=== PATIENT | female | born 1960 | race Caucasian/White ===

== ENCOUNTER 2016-08-15 16:04 | Outpatient (CLI) | payer OTHER ==
[2016-05-25 19:16] VITALS: BMI 26.6
[2016-08-15 17:43] LABS: FLU INTERNAL QC INTERNAL QC VALID; RAPID FLU A NEGATIVE (NEGATIVE); RAPID FLU B NEGATIVE (NEGATIVE)
== END 2016-08-15 16:05 | disposition home or self-care (01) ==
LOC: LAB 16:04
PROVIDERS: ATTEND Nurse Practitioner Family
DX: R50.9 Fever, unspecified (principal); R05 Cough
CPT/HCPCS: 87651; 87804; 87880

== ENCOUNTER 2017-01-07 06:31 | Outpatient (CLI) ==
[2016-05-25 19:16] VITALS: BMI 26.6
[2017-01-07 06:49] LABS: BASOPHILS # (AUTO) 0.1 K/uL (0-0.2); BASOPHILS % (AUTO) 0.8 % (0.0-3.0); EOSINOPHILS # (AUTO) 0.2 K/ul (0.0-0.7); EOSINOPHILS % (AUTO) 3.4 % (0.0-7.0); HEMATOCRIT 39.6 % (37.0-47.0); HEMOGLOBIN 13.4 g/dl (12.0-16.0); IMMATURE GRANULOCYTE % (AUTO) 0.2 % (0.0-5.0); LYMPHOCYTES # (AUTO) 2.6 K/uL (0.60-3.4); LYMPHOCYTES % (AUTO) 41.8 (10.0-50.0); MEAN CORPUSCULAR HEMOGLOBIN 31.5 pg (27.0-31.0); MEAN CORPUSCULAR HGB CONC 33.8 (31.8-35.4); MEAN CORPUSCULAR VOLUME 93.2 fl (81.0-99.0); MONOCYTES # (AUTO) 0.6 K/uL (0.4-2.0); MONOCYTES % (AUTO) 9.1 (0-10); NEUTROPHILS # (AUTO) 2.8 K/ul (2.0-6.9); NEUTROPHILS % (AUTO) 44.7; PLATELET COUNT 266 10^3/uL (140-440); RED BLOOD COUNT 4.25 10^6/ul (4.20-5.40); WHITE BLOOD COUNT 6.25 K/ul (4.6-10.2)
[2017-01-07 07:25] LABS: ALBUMIN 3.7 g/dL (3.4-5.0); ALBUMIN/GLOBULIN RATIO 1.23; ANION GAP 12.3; BILIRUBIN,TOTAL 0.26 mg/dL (0.00-1.20); BUN/CREATININE RATIO 23.52; CALCIUM 9.4 mg/dL (8.2-10.2); CHOL/HDL RATIO 4.6 (4.5-5.5); CREATININE 0.85 mg/dL (0.60-1.30); POTASSIUM 4.3 mmol/L (3.5-5.10); TOTAL PROTEIN 6.7 g/dL (6.4-8.2)
== END 2017-01-07 06:32 | disposition home or self-care (01) ==
LOC: LAB 06:31
PROVIDERS: ATTEND Internal Medicine
DX: E78.5 Hyperlipidemia, unspecified (principal); M79.7 Fibromyalgia; K58.9 Irritable bowel syndrome, unspecified
CPT/HCPCS: 36415; 80053; 80061; 83036; 84443; 85025

== ENCOUNTER 2017-01-17 12:59 | Inpatient (IN) | payer OTHER ==
[2017-01-17] MEDS ORDERED: MORPHINE 2 MG/ML SYRINGE IVP STA (13:03)
[2017-01-17] MEDS ORDERED: ZOFRAN 4 MG/2 ML IVP STA (13:03)
--- NOTE | 2017-01-17 13:04 | ED.PDOC ---
General ED Provider: Dr. JEREMIAH DAVIS JR Chief Complaint: Chest Pain Stated Complaint: right shoulder and arm pain 2 hours later in chest and now into neck Time Seen by Physician: 14:14 Mode of Arrival: Wheelchair Information Source: Patient Exam Limitations: No limitations Primary Care Provider: ILIR HIRSCH Nursing and Triage Documentation Reviewed and Agree: No Review of Systems - Review Of Systems Constitutional: Reports: Malaise Eyes: Reports: No symptoms Ears, Nose, Mouth, Throat: Reports: No symptoms Respiratory: Reports: No symptoms Cardiac: Reports: Chest pain GI: Reports: No symptoms : Reports: No symptoms Musculoskeletal: Reports: Joint pain, Neck pain Skin: Reports: No symptoms Neurological: Reports: No symptoms Endocrine: Reports: No symptoms Hematologic/Lymphatic: Reports: No symptoms All Other Systems: Other Past Medical History - Past Medical History Previously Healthy: Yes Endocrine: Reports: Dyslipidemia Cardiovascular: Reports: None Respiratory: Reports: None Hematological: Reports: None Gastrointestinal: Reports: GERD Genitourinary: Reports: None Neuro/Psych: Reports: Migraine Musculoskeletal: Reports: None Cancer: Reports: None Last Menstrual Period: none - Surgical History General Surgical History: Reports: Cholecystectomy, Other (cts) - Family History Family History: Reports: Unknown - Social History Smoking Status: Current every day smoker Hx Substance Use: No Alcohol Screening: None Physical Exam - Physical Exam Appearance: Well-appearing Pain Distress: Moderate Eyes: DWIGHT, EOMI, Conjunctiva clear ENT: Ears normal, Nose normal, Oropharynx normal Neck: Supple Respiratory: Airway patent, Breath sounds clear, Breath sounds equal, Respirations nonlabored Cardiovascular: RRR, Pulses normal, No rub, No murmur GI/: Soft, Nontender, No masses, Bowel sounds normal, No Organomegaly Musculoskeletal: Normal strength, ROM intact, No edema, No calf tenderness Skin: Warm, Dry, Normal color Neurological: Sensation intact, Motor intact, Reflexes intact, Cranial nerves intact, Alert, Oriented Psychiatric: Affect appropriate, Mood appropriate Critical Care Note - Critical Care Note Total Time (mins): 20 Course - Course Hematology/Chemistry: 01/18/17 05:00 01/18/17 05:00 Orders, Labs, Meds: Lab Review 01/17/17 01/17/17 01/17/17 13:05 13:14 13:35 WBC 10.24 H RBC 4.47 Hgb 14.1 Hct 41.1 MCV 91.9 MCH 31.5 H MCHC 34.3 RDW Coeff of Patric 13.1 Plt Count 251 Immature Gran % (Auto) 0.2 Neut % (Auto) 58.2 Lymph % (Auto) 33.1 Lyman % (Auto) 4.6 Eos % (Auto) 3.2 Baso % (Auto) 0.7 Immature Gran # (Auto) 0.0 Neut # 6.0 Lymph # 3.4 Lyman # 0.5 Eos # 0.3 Baso # 0.1 D-Dimer (Manual) 389.88 Puncture Site Rradial O2 Saturation 94.0 L ABG pH 7.415 ABG pCO2 40.3 ABG pO2 69.0 L ABG HCO3 25.8 ABG Total CO2 27 ABG Base Excess 1 Toño Test + FiO2 % 21.0 Sodium 142 Potassium 4.0 Chloride 107 Carbon Dioxide 20 L Anion Gap 19.0 BUN 10 Creatinine 0.83 Estimated GFR (MDRD) 72.00 BUN/Creatinine Ratio 12.04 Glucose 97 Calcium 9.5 Total Bilirubin 0.47 AST 24 ALT 19 Alkaline Phosphatase 108 H Total Creatine Kinase 147 CK-MB (CK-2) 1.5 CK-MB (CK-2) % 1.41709 Troponin I < 0.0100 B-Natriuretic Peptide 17 Total Protein 7.5 Albumin 4.2 Globulin 3.3 Albumin/Globulin Ratio 1.27 Urine Color Urine Clarity Urine pH Ur Specific [place] Urine Protein Urine Glucose (UA) Urine Ketones Urine Blood Urine Nitrite Urine Bilirubin Urine Urobilinogen Ur Leukocyte Esterase Urine Microscopic RBC Ur Squamous Epith Cells 01/17/17 15:10 WBC RBC Hgb Hct MCV MCH MCHC RDW Coeff of Patric Plt Count Immature Gran % (Auto) Neut % (Auto) Lymph % (Auto) Lyman % (Auto) Eos % (Auto) Baso % (Auto) Immature Gran # (Auto) Neut # Lymph # Lyman # Eos # Baso # D-Dimer (Manual) Puncture Site O2 Saturation ABG pH ABG pCO2 ABG pO2 ABG HCO3 ABG Total CO2 ABG Base Excess Toño Test FiO2 % Sodium Potassium Chloride Carbon Dioxide Anion Gap BUN Creatinine Estimated GFR (MDRD) BUN/Creatinine Ratio Glucose Calcium Total Bilirubin AST ALT Alkaline Phosphatase Total Creatine Kinase CK-MB (CK-2) CK-MB (CK-2) % Troponin I B-Natriuretic Peptide Total Protein Albumin Globulin Albumin/Globulin Ratio Urine Color Yellow Urine Clarity Clear Urine pH 7.0 Ur Specific [place] 1.015 Urine Protein Negative Urine Glucose (UA) Negative Urine Ketones Negative Urine Blood Trace-intact Urine Nitrite Negative Urine Bilirubin Negative Urine Urobilinogen 0.2 Ur Leukocyte Esterase Negative Urine Microscopic RBC 0-2 Ur Squamous Epith Cells Not present Orders Category Date Time Status ADMIT PATIENT INPATIENT .TO [facility] (MONITORED BED) ADMISSION 01/17/17 14: 58 Active ABG DRAW REQUEST Stat CARDIO 01/17/17 13:03 Completed EKG-(ED ONLY) Stat CARDIO 01/17/17 13:03 Completed EKG-(IP & OP ONLY) DAILY CARDIO 01/18/17 06:00 Completed EKG-(IP & OP ONLY) DAILY CARDIO 01/19/17 06:00 Ordered EKG-(IP & OP ONLY) DAILY CARDIO 01/20/17 06:00 Ordered ACTIVITY .Early Mobilization for VTE Prevention CARE 01/17/17 14:58 Completed INTAKE & OUTPUT Q8HR CARE 01/17/17 14:50 Completed TELEMETRY MONITORING TELE CARE 01/17/17 15:01 Active ED PRODUCT SCIENTIST APPLIED .ONCE EMERGENCY 01/17/17 13:03 Active ED IV/MEDIPORT/POWERPORT .ONCE EMERGENCY 01/17/17 13:03 Active ABG Stat LAB 01/17/17 13:35 Completed B-TYPE NATRIURETIC PEPTIDE Stat LAB 01/17/17 13:05 Completed CBC W/ AUTO DIFF DAILY@0600 LAB 01/18/17 05:00 Completed CBC W/ AUTO DIFF DAILY@0600 LAB 01/19/17 06:00 Ordered CBC W/ AUTO DIFF DAILY@0600 LAB 01/20/17 06:00 Ordered CBC W/ AUTO DIFF DAILY@0600 LAB 01/21/17 06:00 Ordered CBC W/ AUTO DIFF DAILY@0600 LAB 01/22/17 06:00 Ordered CBC W/ AUTO DIFF DAILY@0600 LAB 01/23/17 06:00 Ordered CBC W/ AUTO DIFF DAILY@0600 LAB 01/24/17 06:00 Ordered CBC W/ AUTO DIFF DAILY@0600 LAB 01/25/17 06:00 Ordered CBC W/ AUTO DIFF DAILY@0600 LAB 01/26/17 06:00 Ordered CBC W/ AUTO DIFF DAILY@0600 LAB 01/27/17 06:00 Ordered CBC W/ AUTO DIFF DAILY@0600 LAB 01/28/17 06:00 Ordered CBC W/ AUTO DIFF DAILY@0600 LAB 01/29/17 06:00 Ordered CBC W/ AUTO DIFF DAILY@0600 LAB 01/30/17 06:00 Ordered CBC W/ AUTO DIFF DAILY@0600 LAB 01/31/17 06:00 Ordered CBC W/ AUTO DIFF DAILY@0600 LAB 02/01/17 06:00 Ordered CBC W/ AUTO DIFF DAILY@0600 LAB 02/02/17 06:00 Ordered CBC W/ AUTO DIFF DAILY@0600 LAB 02/03/17 06:00 Ordered CBC W/ AUTO DIFF DAILY@0600 LAB 02/04/17 06:00 Ordered CBC W/ AUTO DIFF DAILY@0600 LAB 02/05/17 06:00 Ordered CBC W/ AUTO DIFF DAILY@0600 LAB 02/06/17 06:00 Ordered CBC W/ AUTO DIFF Stat LAB 01/17/17 13:05 Completed COMPREHENSIVE METABOLIC PANEL DAILY@0600 LAB 01/18/17 05:00 Completed COMPREHENSIVE METABOLIC PANEL DAILY@0600 LAB 01/19/17 06:00 Ordered COMPREHENSIVE METABOLIC PANEL DAILY@0600 LAB 01/20/17 06:00 Ordered COMPREHENSIVE METABOLIC PANEL DAILY@0600 LAB 01/21/17 06:00 Ordered COMPREHENSIVE METABOLIC PANEL DAILY@0600 LAB 01/22/17 06:00 Ordered COMPREHENSIVE METABOLIC PANEL DAILY@0600 LAB 01/23/17 06:00 Ordered COMPREHENSIVE METABOLIC PANEL DAILY@0600 LAB 01/24/17 06:00 Ordered COMPREHENSIVE METABOLIC PANEL DAILY@0600 LAB 01/25/17 06:00 Ordered COMPREHENSIVE METABOLIC PANEL DAILY@0600 LAB 01/26/17 06:00 Ordered COMPREHENSIVE METABOLIC PANEL DAILY@0600 LAB 01/27/17 06:00 Ordered COMPREHENSIVE METABOLIC PANEL DAILY@0600 LAB 01/28/17 06:00 Ordered COMPREHENSIVE METABOLIC PANEL DAILY@0600 LAB 01/29/17 06:00 Ordered COMPREHENSIVE METABOLIC PANEL DAILY@0600 LAB 01/30/17 06:00 Ordered COMPREHENSIVE METABOLIC PANEL DAILY@0600 LAB 01/31/17 06:00 Ordered COMPREHENSIVE METABOLIC PANEL DAILY@0600 LAB 02/01/17 06:00 Ordered COMPREHENSIVE METABOLIC PANEL DAILY@0600 LAB 02/02/17 06:00 Ordered COMPREHENSIVE METABOLIC PANEL DAILY@0600 LAB 02/03/17 06:00 Ordered COMPREHENSIVE METABOLIC PANEL DAILY@0600 LAB 02/04/17 06:00 Ordered COMPREHENSIVE METABOLIC PANEL DAILY@0600 LAB 02/05/17 06:00 Ordered COMPREHENSIVE METABOLIC PANEL DAILY@0600 LAB 02/06/17 06:00 Ordered COMPREHENSIVE METABOLIC PANEL Stat LAB 01/17/17 13:05 Completed CREATINE KINASE Q8H LAB 01/17/17 21:00 Completed CREATINE KINASE Q8H LAB 01/18/17 05:00 Completed CREATINE KINASE Stat LAB 01/17/17 13:05 Completed D-DIMER Stat LAB 01/17/17 13:14 Completed TROPONIN I Q8H LAB 01/17/17 21:00 Completed TROPONIN I Q8H LAB 01/18/17 05:00 Completed TROPONIN I Stat LAB 01/17/17 13:05 Completed URINALYSIS C & S IF INDICATED Stat LAB 01/17/17 15:10 Completed 0.9 % Sodium Chloride [Saline Flush] MEDS 01/17/17 13:03 Discontinued 1 syr IVF PRN PRN Acetaminophen [Tylenol] MEDS 01/17/17 14:58 Active 650 mg PO Q4H PRN Atorvastatin Calcium [Lipitor] MEDS 01/17/17 21:00 Active 10 mg PO BEDTIME Diazepam [Valium] MEDS 01/17/17 14:54 Active 5 mg PO Q8HR PRN Gabapentin [Gabapentin] MEDS 01/17/17 15:00 Discontinued 600 mg PO TID Ketorolac Tromethamine [Toradol] MEDS 01/17/17 15:01 Active 15 mg IVP Q6H PRN Ketorolac Tromethamine [Toradol] MEDS 01/17/17 13:44 Discontinued 30 mg IVP ONCE STA Lorazepam [Ativan] MEDS 01/17/17 21:00 Active 0.5 mg PO BEDTIME Morphine Sulfate [Morphine 2 mg/ml Syringe] MEDS 01/17/17 13:03 Discontinued 2 mg IVP ONCE STA Ondansetron HCl/Pf [Zofran 4 mg/2 ml] MEDS 01/17/17 13:03 Discontinued 4 mg IVP ONCE STA Sodium Chloride 0.9% [Sodium Chloride] 1,000 ml MEDS 01/17/17 15:00 Active IV 75 mls/hr Tramadol HCl [Ultram] MEDS 01/17/17 14:52 Active 50 mg PO BID PRN RESUSCITATION STATUS Routine OTHERS 01/17/17 14:50 Ordered CHEST, 1V AP ONLY Stat RADS 01/17/17 13:03 Completed Medications Generic Name Dose Route Start Last Admin Trade Name Lore PRN Reason Stop Dose Admin Acetaminophen 650 mg 01/17/17 14:58 Tylenol PO Q4H PRN Mild Pain Atorvastatin Calcium 10 mg 01/17/17 21:00 01/17/17 20:19 Lipitor PO 10 mg BEDTIME QAMAR Administration Diazepam 5 mg 01/17/17 14:54 Valium PO Q8HR PRN Anxiety Gabapentin 600 mg 01/18/17 09:00 01/18/17 08:56 Neurontin PO 600 mg TID QAMAR Administration Sodium Chloride 1,000 mls @ 75 mls/hr 01/17/17 15:00 01/18/17 06:29 Sodium Chloride IV 75 mls/hr .[id number] QAMAR Administration Ketorolac Tromethamine 15 mg 01/17/17 15:01 Toradol IVP Q6H PRN pain not contrlolled Lorazepam 0.5 mg 01/17/17 21:00 01/17/17 20:18 Ativan PO 0.5 mg BEDTIME QAMAR Administration Omeprazole 40 mg 01/18/17 09:00 01/18/17 08:56 Prilosec PO 40 mg QDAC QAMAR Administration Tramadol HCl 50 mg 01/17/17 14:52 Ultram PO BID PRN pain Discontinued Medications Generic Name Dose Route Start Last Admin Trade Name Lore PRN Reason Stop Dose Admin Dexamethasone Sodium Phosphate 2 mg 01/18/17 07:59 01/18/17 08:47 Decadron 4 Mg/Ml Sdv IM 01/18/17 08:00 2 mg ONCE STA Administration Ketorolac Tromethamine 30 mg 01/17/17 13:44 01/17/17 14:04 Toradol IVP 01/17/17 13:45 30 mg ONCE STA Administration Ketorolac Tromethamine 30 mg 01/18/17 07:59 01/18/17 08:51 Toradol IVP 01/18/17 08:00 30 mg ONCE STA Administration Morphine Sulfate 2 mg 01/17/17 13:03 01/17/17 13:21 Morphine 2 Mg/Ml Syringe IVP 01/17/17 13:04 2 mg ONCE STA Administration Non-Formulary Medication 600 mg 01/17/17 15:00 01/17/17 21:09 Gabapentin [Gabapentin] PO Not Given TID QAMAR Ondansetron HCl 4 mg 01/17/17 13:03 01/17/17 13:18 Zofran 4 Mg/2 Ml IVP 01/17/17 13:04 4 mg ONCE STA Administration Ondansetron HCl 4 mg 01/18/17 08:00 01/18/17 08:51 Zofran 4 Mg/2 Ml IVP 01/18/17 08:01 4 mg ONCE STA Administration Sodium Chloride 1 syr 01/17/17 13:03 01/17/17 14:05 Saline Flush IVF 1 syr PRN PRN Administration To flush IV Vital Signs: Temp Pulse Resp BP Pulse Ox 01/17/17 12:59 98.0 F 73 18 125/84 99 KEVIN Risk Score KEVIN Risk Score: Risk Score Odds of by 30D 0 0.1 (0.1-0.2) 1 0.3 (0.2-0.3) 2 0.4 (0.3-0.5) 3 0.7 (0.6-0.9) 4 1.2 (1.0-1.5) 5 2.2 (1.9-2.6) 6 3.0 (2.5-3.6) 7 4.8 (3.8-6.1) Departure - Departure Time of Disposition: 14:50 Disposition: ADMITTED INPATIENT Discharge Problem: Chest pain Condition: Good Pt referred to PMD for follow-up: Yes Allergies/Adverse Reactions: Allergies No Known Allergies Allergy (Verified 01/17/17 13:02) Home Medications: Ambulatory Orders Diazepam [Valium] 5 mg PO Q8HR PRN 02/10/13 Omeprazole [Prilosec] 40 mg PO DAILY 10/18/15 Gabapentin 600 mg PO TID 04/22/16 Tramadol HCl 50 mg PO BID PRN 04/22/16 Atorvastatin Calcium [Lipitor] 10 mg PO BEDTIME 01/17/17 Lorazepam [Ativan] 0.5 mg PO BEDTIME 01/17/17
[2017-01-17 13:05] VITALS: BMI 27.4
[2017-01-17 13:12] LABS: BASOPHILS # (AUTO) 0.1 K/uL (0-0.2); BASOPHILS % (AUTO) 0.7 % (0.0-3.0); EOSINOPHILS # (AUTO) 0.3 K/ul (0.0-0.7); EOSINOPHILS % (AUTO) 3.2 % (0.0-7.0); HEMATOCRIT 41.1 % (37.0-47.0); HEMOGLOBIN 14.1 g/dl (12.0-16.0); IMMATURE GRANULOCYTE % (AUTO) 0.2 % (0.0-5.0); LYMPHOCYTES # (AUTO) 3.4 K/uL (0.60-3.4); LYMPHOCYTES % (AUTO) 33.1 (10.0-50.0); MEAN CORPUSCULAR HEMOGLOBIN 31.5 pg (27.0-31.0); MEAN CORPUSCULAR HGB CONC 34.3 (31.8-35.4); MEAN CORPUSCULAR VOLUME 91.9 fl (81.0-99.0); MONOCYTES # (AUTO) 0.5 K/uL (0.4-2.0); MONOCYTES % (AUTO) 4.6 (0-10); NEUTROPHILS % (AUTO) 58.2; PLATELET COUNT 251 10^3/uL (140-440); RED BLOOD COUNT 4.47 10^6/ul (4.20-5.40); WHITE BLOOD COUNT 10.24 K/ul (4.6-10.2)
--- NOTE | 2017-01-17 13:27 | DI ---
Exam: Single view chest x-ray. Date: 01/17/2017. Comparison: 10/18/2015. HISTORY: Chest pain. FINDINGS: A dorsal column stimulation device is present over the mid thoracic spine. The lungs are clear. The cardiac silhouette and pulmonary vasculature are normal. Impression: No acute intrathoracic findings. Interval placement of a dorsal column stimulation dev ice.
[2017-01-17 13:43] LABS: ABG PH 7.415 (7.35-7.45)
[2017-01-17 13:44] LABS: ABG BASE EXCESS 1 (-2.0-2.0); ABG HCO3 25.8 (22.0-26.0); ABG PCO2 40.3 mmHg (35-45); ABG TCO2 27 (22.0-28.0)
[2017-01-17] MEDS ORDERED: TORADOL IVP STA (13:44)
[2017-01-17 13:47] LABS: ALANINE AMINOTRANSFERASE 19 U/L (12-78); ALBUMIN 4.2 g/dL (3.4-5.0); ALBUMIN/GLOBULIN RATIO 1.27; ALKALINE PHOSPHATASE 108 U/L (42-98); ASPARTATE AMINO TRANSFERASE 24 U/L (15-37); BILIRUBIN,TOTAL 0.47 mg/dL (0.00-1.20); BLOOD UREA NITROGEN 10 mg/dL (7-18); BUN/CREATININE RATIO 12.04; CALCIUM 9.5 mg/dL (8.2-10.2); CARBON DIOXIDE 20 mmol/L (21-32); CHLORIDE 107 mmol/L (98-107); CREATINE KINASE 147 U/L; CREATININE 0.83 mg/dL (0.60-1.30); GLUCOSE 97 mg/dL (70-110); SODIUM 142 mmol/L (136-145); TOTAL PROTEIN 7.5 g/dL (6.4-8.2)
[2017-01-17 13:48] LABS: CREATINE KINASE MB 1.5 ng/ml (0.0-3.6)
[2017-01-17] MEDS ORDERED: ULTRAM PO PRN (14:52)
[2017-01-17] MEDS ORDERED: VALIUM PO PRN (14:54)
[2017-01-17] MEDS ORDERED: TYLENOL PO PRN (14:58)
[2017-01-17] MEDS ORDERED: TORADOL IVP PRN (15:01)
[2017-01-17 15:27] LABS: BILIRUBIN,URINE Negative (NEGATIVE); KETONES,URINE Negative (NEGATIVE); LEUKOCYTE ESTERASE ,URINE Negative (NEGATIVE); NITRITE,URINE Negative (NEGATIVE); PROTEIN,URINE Negative (NEGATIVE); URINE, BLOOD Trace-intact (NEGATIVE)
[2017-01-17 15:29] LABS: ADD URINE MICROSCOPIC YES
[2017-01-17] MEDS ORDERED: NEURONTIN ONE ×2 (16:22→20:15)
[2017-01-17] MEDS: NON-FORMULARY MEDICATION (Gabapentin [Gabapentin] 600 MG) PO SCH ×2 (16:25→21:09)
[2017-01-17] MEDS: SODIUM CHLORIDE 1,000 ML IV SCH (16:26)
[2017-01-17] MEDS: ATIVAN PO SCH (20:18)
[2017-01-17] MEDS: LIPITOR PO SCH (20:19)
[2017-01-17 21:25] LABS: CREATINE KINASE 113 U/L
[2017-01-18 05:13] LABS: BASOPHILS # (AUTO) 0.1 K/uL (0-0.2); BASOPHILS % (AUTO) 1.2 % (0.0-3.0); EOSINOPHILS # (AUTO) 0.4 K/ul (0.0-0.7); EOSINOPHILS % (AUTO) 6.3 % (0.0-7.0); HEMATOCRIT 36.5 % (37.0-47.0); HEMOGLOBIN 12.4 g/dl (12.0-16.0); IMMATURE GRANULOCYTE % (AUTO) 0.2 % (0.0-5.0); LYMPHOCYTES # (AUTO) 3.1 K/uL (0.60-3.4); LYMPHOCYTES % (AUTO) 52.3 (10.0-50.0); MEAN CORPUSCULAR VOLUME 94.1 fl (81.0-99.0); MONOCYTES # (AUTO) 0.5 K/uL (0.4-2.0); MONOCYTES % (AUTO) 7.9 (0-10); NEUTROPHILS # (AUTO) 1.9 K/ul (2.0-6.9); NEUTROPHILS % (AUTO) 32.1; PLATELET COUNT 214 10^3/uL (140-440); RED BLOOD COUNT 3.88 10^6/ul (4.20-5.40); WHITE BLOOD COUNT 5.85 K/ul (4.6-10.2)
[2017-01-18 05:35] LABS: ALBUMIN 3.3 g/dL (3.4-5.0); ALBUMIN/GLOBULIN RATIO 1.27; ANION GAP 14.3; BILIRUBIN,TOTAL 0.3 mg/dL (0.00-1.20); BUN/CREATININE RATIO 17.04; CALCIUM 8.9 mg/dL (8.2-10.2); CREATININE 0.88 mg/dL (0.60-1.30); POTASSIUM 4.3 mmol/L (3.5-5.10); TOTAL PROTEIN 5.9 g/dL (6.4-8.2)
[2017-01-18 05:43] LABS: CREATINE KINASE 96 U/L
[2017-01-18] MEDS: SODIUM CHLORIDE 1,000 ML IV SCH ×3 (06:29→20:15)
[2017-01-18] MEDS ORDERED: DOBUTAMINE 250 ML IV ONE (07:08)
[2017-01-18] MEDS ORDERED: ATROPINE SULFATE PFS ONE (07:09)
--- NOTE | 2017-01-18 07:41 | ECHO2D ---
Date of Exam: 01/17/17 Ordering Physician: ILIR HIRSCH Reason for Echo: CHEST PAIN/TIGHTNESS M-Mode Normal Adult Results LV Dimensions Normal Adult Results AoV Opening excursions >1.6 >1.6 LVEDD-base- 3.5-5.8 4.2 Ao root dimensions 2.0-3.7 3.4 LVESD-base- 3.1-4.6 L. Atrium dimensions 1.9-3.8 3.2 Post. Wall thickness 0.8-1.1 1.2 IV septum (thickness) 0.7-1.2 1.2 Post. Wall excursion 0.72-1.3 NORMAL Septal motion NORMAL Systolic motion R. Ventricular cavity 1.5-2.0 NORMAL LVEF 60% 60% Paradoxical septal wall motion NORMAL 2-D : 2-D M Mode Echocardiogram was performed using apical four chamber and left parasternal long and short axis views. Mitral, tricuspid and aortic valves appear to be normal. Contractility of the left ventricle seems to be normal, so is the cavity size. Left atrial cavity size and aortic root appear to be normal. There is no pericardial effusion. There is no thrombus noted in the left ventricular or left aortic cavity. No mitral valve prolapse noted. M-MODE: MV: NORMAL AV: NORMAL TV: NORMAL PV: CHAMBER SIZE: NORMAL WALL MOTION: NORMAL PERICARDIUM: NORMAL INTERPRETATION: 1. NORMAL 2 "D" "M" MODE ECHO MTDD
[2017-01-18] MEDS ORDERED: TORADOL IVP STA (07:59)
[2017-01-18] MEDS ORDERED: DECADRON 4 MG/ML SDV IM STA (07:59)
[2017-01-18] MEDS ORDERED: ZOFRAN 4 MG/2 ML IVP STA (08:00)
[2017-01-18] MEDS: PRILOSEC PO SCH (08:56)
[2017-01-18] MEDS: NEURONTIN PO SCH ×3 (08:56→20:16)
[2017-01-18] MEDS ORDERED: NON-FORMULARY MEDICATION (Omeprazole [Prilosec] 40 MG) PO SCH (09:00)
--- NOTE | 2017-01-18 09:45 | DI ---
EXAM: Three views of the cervical spine. History: Cervical neck pain. Comparison: Cervical spine radiograph 06/26/2014 Findings: Reversal of the normal cervical lordosis. No acute fracture or subluxation. Mild to mod erate disc space narrowing again seen at C5-6 with small osteophytes. The other disc space heights are preserved. No prevertebral soft tissue swelling. Predental space is not widened. Impression: 1. No acute osseous abnormality of the cervical spine. 2. Reversal of the normal cervical lordosis. 3. Stable mild to moderate degenerative disc disease at C5-6.
--- NOTE | 2017-01-18 09:47 | DI ---
EXAM: Three views of the thoracic spine. History: Thoracic back pain. Comparison: CT abdomen pelvis 05/25/2016 Findings: Spiral similar device identified. Cholecystectomy clips. Severe focal dextroscoliosis c entered within the upper lumbar spine is stable. Osteopenia. No acute fracture or subluxation. St able chronic compression deformities within the lower thoracic and upper lumbar spine. Mild to mode rate degenerative disc space narrowing is not significantly changed. Impression: No acute findings. Severe dextroscoliosis. Degenerative disc disease.
[2017-01-18] MEDS: ATIVAN PO SCH (20:16)
[2017-01-18] MEDS: LIPITOR PO SCH (20:16)
[2017-01-19] MEDS: PRILOSEC PO SCH (05:48)
[2017-01-19 05:50] LABS: BASOPHILS # (AUTO) 0.1 K/uL (0-0.2); BASOPHILS % (AUTO) 0.5 % (0.0-3.0); EOSINOPHILS # (AUTO) 0.1 K/ul (0.0-0.7); EOSINOPHILS % (AUTO) 1.2 % (0.0-7.0); HEMATOCRIT 33.9 % (37.0-47.0); HEMOGLOBIN 11.4 g/dl (12.0-16.0); IMMATURE GRANULOCYTE % (AUTO) 0.3 % (0.0-5.0); LYMPHOCYTES # (AUTO) 2.8 K/uL (0.60-3.4); LYMPHOCYTES % (AUTO) 26.6 (10.0-50.0); MEAN CORPUSCULAR HEMOGLOBIN 31.9 pg (27.0-31.0); MEAN CORPUSCULAR HGB CONC 33.6 (31.8-35.4); MONOCYTES # (AUTO) 0.9 K/uL (0.4-2.0); MONOCYTES % (AUTO) 8.2 (0-10); NEUTROPHILS # (AUTO) 6.6 K/ul (2.0-6.9); NEUTROPHILS % (AUTO) 63.2; PLATELET COUNT 212 10^3/uL (140-440); RED BLOOD COUNT 3.57 10^6/ul (4.20-5.40); WHITE BLOOD COUNT 10.42 K/ul (4.6-10.2)
[2017-01-19 06:16] LABS: ALBUMIN 3.2 g/dL (3.4-5.0); ALBUMIN/GLOBULIN RATIO 1.23; ANION GAP 16.4; BILIRUBIN,TOTAL 0.22 mg/dL (0.00-1.20); BUN/CREATININE RATIO 16.43; CALCIUM 8.4 mg/dL (8.2-10.2); CREATININE 0.73 mg/dL (0.60-1.30); POTASSIUM 4.4 mmol/L (3.5-5.10); TOTAL PROTEIN 5.8 g/dL (6.4-8.2)
[2017-01-19] MEDS: NEURONTIN PO SCH (09:11)
--- NOTE | 2017-01-19 09:47 | PCM.PROG ---
Attending Provider: ATTENDING PROVIDER: Dr. ILIR HIRSCH DATE OF SERVICE: 01/19/17 SUBJECTIVE: This 56 year old WHITE/ F was hospitalized 01/17/17. The patient was seen with Nurse Practitioner, Meron. The patient is sitting in chair ready to go home. She thinks part of her problem is anxiety and stress. REVIEW OF SYSTEMS: CONSTITUTIONAL: No night sweats. No fatigue, malaise, lethargy. No fever or chills. HEENT: Eyes: No visual changes. No eye pain. No eye discharge. ENT: No runny nose. No epistaxis. No sinus pain. No odynophagia. No congestion. RESPIRATORY: No cough, no congestion. No hemoptysis. CARDIOVASCULAR: No angina symptoms. No CHF symptoms. No atypical chest pain for CAD. No palpitations. No shortness of breath. GASTROINTESTINAL: No abdominal pain. No nausea or vomiting. No diarrhea or constipation. No hematemesis. No hematochezia. GENITOURINARY: No urgency. No frequency. No dysuria. No hematuria. No obstructive symptoms. No discharge. No pain. No significant abnormal bleeding. MUSCULOSKELETAL: No musculoskeletal pain; no joint swelling. NEUROLOGICAL: Awake, alert, oriented to time, place and person. No headache. No neck pain. No syncope. No seizures. No dizziness. PSYCHIATRIC: Not anxious. No depression. No suicidal thoughts. No homicidal thoughts. SKIN: No rash. No lesions. No wounds. ENDOCRINE: No unexplained weight loss. No weight gain. HEMATOLOGIC/LYMPHATIC: No anemia. No purpura. No petechiae. No prolonged or excessive bleeding. No palpable lymph nodes. PHYSICAL EXAMINATION: GENERAL: The patient is awake, alert and oriented, sitting in the chair in no distress. VITAL SIGNS: Temperature 97.4 F, Pulse 59, Respiratory Rate 16, BP 89/58, Pulse Ox 97% HEENT: Head normocephalic, atraumatic. Eyes: Extraocular muscles are intact. Pupils are equal, round and reactive to light and accommodation. Ears: No lesions. Nose appeared normal. Throat: No exudate or erythema. NECK: Supple. No JVD, no carotid bruit. No lymphadenopathy or thyromegaly. LUNGS: Clear to auscultation. Percussion note normal. Chest symmetrical. HEART: S1, S2, no S3. No murmurs. No cyanosis or clubbing. No ascites. Pulses: Dorsalis pedis and posterior tibial pulses +1 to +2 both sides. ABDOMEN: Soft. Non-tender. Bowel sounds active. No CVA tenderness. No mass felt. EXTREMITIES: No edema. Full range of motion of all extremities, equal. NEUROLOGIC: No focal deficit. Cranial nerves II through XII are grossly intact. No headache, no double vision or headache. SKIN: Not dry. Intact. Turgor-normal. LYMPHATIC: No palpable lymph nodes/no lymphedema. MUSCULOSKELETAL: Normal joints with no swelling. Muscle tone is normal. LAB REVIEW: 01/19/17 05:25 01/19/17 05:25 01/19/17 05:25: WBC 10.42 H, RBC 3.57 L, Hgb 11.4 L, Hct 33.9 L, MCV 95.0, MCH 31.9 H, MCHC 33.6, RDW Coeff of Patric 13.1, Plt Count 212, Immature Gran % (Auto) 0.3, Neut % (Auto) 63.2, Lymph % (Auto) 26.6, [place] % (Auto) 8.2, Eos % (Auto) 1.2, Baso % (Auto) 0.5, Immature Gran # (Auto) 0.0, Neut # 6.6, Lymph # 2.8, [place] # 0.9, Eos # 0.1, Baso # 0.1, Sodium 143, Potassium 4.4, Chloride 110 H, Carbon Dioxide 21, Anion Gap 16.4, BUN 12, Creatinine 0.73, Estimated GFR (MDRD ) 83.00, BUN/Creatinine Ratio 16.43, Glucose 84, Calcium 8.4, Total Bilirubin 0.22, AST 14 L, ALT 12, Alkaline Phosphatase 79, Total Protein 5.8 L, Albumin 3.2 L, Globulin 2.6, Albumin/Globulin Ratio 1.23 ASSESSMENT: Please see below. 1. Chest pain 2. Anxiety PLAN: 1. Lexapro 10mg daily start with half x1 week 2. Followup in office on Thursday 3. 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 SCRIBED BY: Yi LOPEZ scribed while in presence of service performed by Dr. ILIR HIRSCH/MERON ZAPIEN APRN on 01/19/17 ([id number])
[2017-01-19 10:21] VITALS: BP 111/78; TEMP 97.8
[2017-01-19] MEDS ORDERED: PNEUMOVAX 23 SUBCUT ONE (10:45)
--- NOTE | 2017-01-19 13:02 | DOBSTECHO ---
Ordering Physician: ILIR HIRSCH Date of Test: 01/18/17 Reason for Examination: CHEST PAIN Current Medications: LIPITOR, ATIVAN, VALIUM, TORADOL, ATIVAN, GABAPENTIN, PRILOSEC, ULTRAM Height: 64" Weight: 160 LBS Target Heart Rate: 141 ST Segment Stage Time HR BPM BP mmhg Rhythm +/- Up Down Comments/Symptoms Control Sitting 60 125/78 SR X NONE Dobutamine 250mg/D5W 5cmg/KG/mn 10cmg/KG/mn 3:00 69 115/70 SR X NONE 15cmg/KG/mn 2:00 94 122/75 SR X NONE 20cmg/KG/mn 2:00 123 130/78 SR X NONE 25cmg/KG/mn 2:00 131 128/75 SR X NONE 30cmg/KG/mn 1:23 132 120/60 SR X NONE 35cmg/KG/mn 40cmg/KG/mn Time: 4 HR B/P Time: HR B/P Time: HR B/P Recovery 80 125/72 Recovery Recovery Total Time: 10:23 Maximum Heart Rate Reached: 132 Interpretation: 98% OXYGEN SATURATION AT REST ON ROOM AIR 1. NO EVIDENCE OF ISCHEMIA BY ST-T WAVE 2. NO CHEST PAIN OR CHEST DISCOMFORT 3. NORMAL LEFT VENTRICULAR CONTRACTILITY--RESTING AND WITH DOBUTAMINE INFUSION MTDD
--- NOTE | 2017-01-19 13:05 | ECHOSTRESS ---
Date of Exam: 01/18/17 Ordering Physician: ILIR HIRSCH Reason for Echo: CHEST PAIN M-Mode Normal Adult Results LV Dimensions Normal Adult Results AoV Opening excursions >1.6 LVEDD-base- 3.5-5.8 Ao root dimensions 2.0-3.7 LVESD-base- 3.1-4.6 L. Atrium dimensions 1.9-3.8 Post. Wall thickness 0.8-1.1 IV septum (thickness) 0.7-1.2 Post. Wall excursion 0.72-1.3 Septal motion Systolic motion R. Ventricular cavity 1.5-2.0 LVEF 60% Paradoxical septal wall motion 2-D: NORMAL LEFT VENTRICULAR CONTRACTILITY--RESTING AND WITH DOBUTAMINE INFUSION M-MODE: MV: AV: TV: PV: CHAMBER SIZE: WALL MOTION: NORMAL LEFT VENTRICULAR CONTRACTILITY--RESTING AND WITH DOBUTAMINE INFUSION PERICARDIUM: INTERPRETATION: 1. NORMAL LEFT VENTRICULAR CONTRACTILITY--RESTING AND WITH DOBUTAMINE INFUSION MTDD
--- NOTE | 2017-01-19 13:38 | HP ---
DATE OF SERVICE: 01/17/17 REASON FOR HOSPITALIZATION: Chest pain HISTORY OF PRESENT ILLNESS: The patient is a 56 year old white female has been having chest tightness and chest pain for past several hours. This morning when she was driving she started having chest pain and chest tightness going to the right side of the neck and jaw. The patient was somewhat short of breath but no sweating. The patient doesn't have any exertional symptoms of coronary insufficiency. The patient has several risk factors for coronary artery disease like dyslipidemia which has been poorly treated as patient is unable to tolerate Statins or taking Statins on regular basis, smoking and family history. REVIEW OF SYSTEMS: CONSTITUTIONAL: No night sweats. Weakness and fatigue. No fever or chills. HEENT: Eyes: No visual changes. No eye pain. No eye discharge. ENT: No runny nose. No epistaxis. No sinus pain. No sore throat. No odynophagia. No ear pain. No congestion. RESPIRATORY: No cough, no congestion. No hemoptysis. CARDIOVASCULAR: No angina symptoms. No CHF symptoms. No atypical chest pain for CAD. No palpitations. No shortness of breath. Chest tightness as described few hours duration with shortness of breath and no sweating. No PND. No Orthopnea. GASTROINTESTINAL: No abdominal pain. No nausea or vomiting. No diarrhea or constipation. No hematemesis. No hematochezia. GENITOURINARY: No urgency. No frequency. No dysuria. No hematuria. No obstructive symptoms. No discharge. No pain. No significant abnormal bleeding. MUSCULOSKELETAL: No musculoskeletal pain. No joint swelling. No arthritis. Back pain as usual, rated 2-7 on scale from 1 to 10 usually. NEUROLOGICAL: No headache. No neck pain. No syncope. No seizures. No dizziness. PSYCHIATRIC: Not anxious. No depression. No suicidal thoughts. No homicidal thoughts. SKIN: No rash. No lesions. No wounds. ENDOCRINE: No unexplained weight loss. No weight gain. HEMATOLOGIC/LYMPHATIC: No anemia. No purpura. No petechiae. No prolonged or excessive bleeding. No palpable lymph nodes. PERSONAL/FAMILY/SOCIAL HISTORY: The patient is and lives with the , smoker but no alcohol abuse. She does all activity of daily living. PAST MEDICAL/SURGICAL PROBLEMS: Status post back surgery, May 2016 Dyslipidemia, poorly treated Gastroesophageal reflux disease Back pain with back surgeries Anxiety syndrome Back muscle spasms MEDICATIONS: Diazepam 5mg PO Q 8 hours Prilosec 40mg PO daily Gabapentin 600mg three times a day Tramadol 50mg twice a day Atorvastatin 10mg PO at bedtime Ativan 0.5mg at bedtime. ALLERGIES: No known allergies. PHYSICAL EXAMINATION: GENERAL: The patient is oriented to time, place and person. VITAL SIGNS: Temperature 98.0, pulse 73, respiratory rate 18, blood pressure 125/84 and pulse ox 99%. HEENT: Head normocephalic, atraumatic. Eyes: Extraocular muscles are intact. Pupils are equal, round and reactive to light and accommodation. Ears: No lesions. Nose appeared normal. Throat: No exudate or erythema. Face: symmetrical sclerae not icteric. NECK: Supple. No JVP, no carotid bruit. No lymphadenopathy or thyromegaly. LUNGS: Decreased breath sounds but clear to auscultation. Percussion note normal. Chest symmetrical. HEART: S1, S2, no S3. No murmurs. No cyanosis or clubbing. No ascites. Pulses: Dorsalis pedis and posterior tibial pulses +2 bilaterally. ABDOMEN: Soft. Nontender. Bowel sounds active. No CVA tenderness. No mass felt. EXTREMITIES: No edema. Full range of motion of all extremities, equal. NEUROLOGIC: No focal deficit. Cranial nerves II through XII are grossly intact. No headache, no double vision or headache. Normal reflexes and normal mental status. SKIN: Not dry. Intact. Turgor - normal. No rash. LYMPHATIC: No palpable lymph nodes/no lymphedema. MUSCULOSKELETAL: Normal joints with no swelling. Muscle tone is normal. LABS: hgb 14, hct 21, WBC 10,000 normal differential, creatinine 0.8, BUN 10, potassium 4, glucose 97, BNP normal, D-dimer negative. CK-MB normal. EKG sinus rhythm with no acute changes. Echocardiogram normal LV contractility, normal valves. ASSESSMENT: 1. Chest pain, character seems to be equivocal for coronary insufficiency 2. Dyslipidemia 3. Smoking 4. Status post back surgery with back pain 5. Anxiety syndrome PLAN: 1. Telemetry 2. Cardiac markers 3. Serial EKG's 4. Echo already done 5. Dobutamine stress echo in the morning 6. Risk factors for coronary artery disease discussed and how to modify them. The patient has started taking Lipitor. Encouraged to take as higher dose of Lipitor as she could. CONDITION: Stable. TIME SPENT: More than 70 minutes. MTDD
--- NOTE | 2017-01-20 10:42 | PN ---
DATE OF SERVICE: 01/19/17 SUBJECTIVE: The patient is a 56 year old white female hospitalized with chest pain, squeezing type going to the right jaw. The patient's condition has improved some. Her echo and stress echo Dobutamine and stress echo were negative for ischemia and heart cardiac markers are negative. Telemetry sinus rhythm, no ST- T wave change and EKG is normal. The patient's neck pain and chest pain could be related to fibromyalgia. The patient seems to be mildly depressed. No suicidal or homicidal tendency. Lexapro has been started. PHYSICAL EXAMINATION: HEENT: Head normocephalic, atraumatic. Eyes: Extraocular muscles are intact. Pupils are equal, round and reactive to light and accommodation. Ears: No lesions. Nose appeared normal. Throat: No exudate or erythema. NECK: Supple. No JVD, no carotid bruit. No lymphadenopathy or thyromegaly. LUNGS: Clear to auscultation. Percussion note normal. Chest symmetrical. HEART: S1, S2, no S3. No murmurs. No cyanosis or clubbing. No ascites. Pulses: Dorsalis pedis and posterior tibial pulses +1 to +2 both sides. ABDOMEN: Soft. Nontender. Bowel sounds active. No CVA tenderness. No mass felt. EXTREMITIES: No edema. Full range of motion of all extremities, equal. NEUROLOGIC: No focal deficit. Cranial nerves II through XII are grossly intact. No headache, no double vision or headache. SKIN: Not dry. Intact. Turgor - normal. LYMPHATIC: No palpable lymph nodes/no lymphedema. MUSCULOSKELETAL: Normal joints with no swelling. Muscle tone is normal. CONDITION: Stable LABS: Shows mild anemia otherwise normal kidney function and liver function. PLAN: 1. The patient will have will refill on Ativan 2. Lexapro side effect discussed including worsening of the depression and suicidal and homicidal tendency, in that situation stop the medicine and go to the emergency. TIME SPENT: More than 30 minutes. Plan and coordination of the patient's care discussed in the presence of nurse. CARLEE
--- NOTE | 2017-01-20 10:42 | PN ---
01/17/17: Level 5 01/18/17: Intermediate 01/19/17: D as in discharge MTDD
--- NOTE | 2017-01-20 13:55 | PN ---
DATE OF SERVICE: 01/18/17 SUBJECTIVE: The patient is a 56 year old white female hospitalized with chest pain and chest tightness and squeezing type of pain going to the right side of the neck. The patient has multiple risk factors for coronary artery disease like family history, inactivity, smoking, dyslipidemia treatment off and on the patient's choice because of the side effects from statins. REVIEW OF SYSTEMS: CONSTITUTIONAL: No night sweats. Complains of fatigue and tired feeling. No fever or chills. HEENT: Eyes: No visual changes. No eye pain. No eye discharge. ENT: No runny nose. No epistaxis. No sinus pain. No sore throat. No odynophagia. No congestion. RESPIRATORY: No cough, no congestion. No hemoptysis. CARDIOVASCULAR: No angina symptoms. No CHF symptoms. No atypical chest pain for CAD. No palpitations. No shortness of breath. Mild chest pain more or less constant across. No jaw pain. GASTROINTESTINAL: No abdominal pain. No nausea or vomiting. No diarrhea or constipation. No hematemesis. No hematochezia. GENITOURINARY: No urgency. No frequency. No dysuria. No hematuria. No obstructive symptoms. No discharge. No pain. No significant abnormal bleeding. MUSCULOSKELETAL: No musculoskeletal pain; no joint swelling. NEUROLOGICAL: No headache. No neck pain. No syncope. No seizures. No dizziness. PSYCHIATRIC: Not anxious. No depression. No suicidal thoughts. No homicidal thoughts. SKIN: No rash. No lesions. No wounds. ENDOCRINE: No unexplained weight loss. No weight gain. HEMATOLOGIC/LYMPHATIC: No anemia. No purpura. No petechiae. No prolonged or excessive bleeding. No palpable lymph nodes. PHYSICAL EXAMINATION: GENERAL: The patient is oriented to time, place and person. VITAL SIGNS: Temperature 98.6, pulse 67, respiratory rate 19, blood pressure 108/80 and pulse ox 98%. HEENT: Head normocephalic, atraumatic. Eyes: Extraocular muscles are intact. Pupils are equal, round and reactive to light and accommodation. Ears: No lesions. Nose appeared normal. Throat: No exudate or erythema. NECK: Supple. No JVD, no carotid bruit. No lymphadenopathy or thyromegaly. LUNGS:Decreased breath sounds but clear to auscultation. Percussion note normal. Chest symmetrical. HEART: S1, S2, no S3. No murmurs. No cyanosis or clubbing. No ascites. Pulses: Dorsalis pedis and posterior tibial pulses +1 to +2 both sides. ABDOMEN: Soft. Nontender. Bowel sounds active. No CVA tenderness. No mass felt. EXTREMITIES: No edema. Full range of motion of all extremities, equal. NEUROLOGIC: No focal deficit. Cranial nerves II through XII are grossly intact. No headache, no double vision or headache. SKIN: Not dry. Intact. Turgor - normal. LYMPHATIC: No palpable lymph nodes/no lymphedema. MUSCULOSKELETAL: Normal joints with no swelling. Muscle tone is normal. LABS: Hgb 12.4, hct 36, WBC 5,800 normal differential, creatinine 0.8, BUN 15, potassium 4.3, BNP negative. The patient had echocardiogram done which showed normal LV contractility. The patient's Dobutamine stress echo today was negative for any ischemia. The patient's telemetry does not show any ST-T wave change. Cardiac markers are negative. Practically cardiac workup Echocardiogram done because of this finding today which showed LVH enlarged LA cavity mildly hypokinetic inferior posterior wall with LV ejection fraction 53% but the echo findings don't go along with EKG findings. si negative. ASSESSMENT: 1. Chest pain, squeezing type 2. Neck pain 3. Right jaw pain, etiology unknown 4. History of L spine surgery 5. DJD of the spine with Radiculopathy PLAN: 1. The patient continues to have weakness and fatigue 2. The patient will have C spine and T spine x-ray. 3. The patient is smoker, counseling for smoking done . 4. The patient was given Toradol on Decadron for possibility of musculoskeletal type of problems creating the symptoms. The patient has history of muscle spasm on Valium given by Pain Management, [facility]. 5. Also at present time she is on Lipitor 10mg CONDITION: Stable. TIME SPENT: More than 30 minutes. Plan and coordination of the patient's care discussed in the presence of nurse. CARLEE
--- NOTE | 2017-01-27 12:25 | DS ---
DATE OF SERVICE: 01/19/17 FINAL DIAGNOSIS: 1. Chest pain 2. Fibromyalgia Type symptoms 3. Depression/anxiety 4. Chronic fatigue 5. COPD-Current smoker 6. Dyslipidemia 7. GERD 8. Migraine Headaches 9. TMJ 10.Mitral valve prolapse 11.Back pain and scoliosis 12.DJD Spine 13.Cholecystectomy 14.Carpal tunnel release 15.Electronic internal nerve stimulator for chronic back pain insertion LAST VITALS: Temperature 97.8, pulse 71, respiratory rate 20, blood pressure 111/78 and pulse ox 98%. DISCHARGE INSTRUCTIONS: Discharge the patient home today. Return to see Dr. Brito on 01/21/17 at 9am. Resume home medication as per list provided by the nursing staff. MEDICATIONS AT DISCHARGE: Lipitor 10mg PO bedtime Valium 5mg PO Q 8 hours PRN Neurontin 600mg PO three times a day Lexapro 10mg take one half tablet PO bedtime x1 week then take one tablet PO bedtime Ativan 0.25mg PO bedtime Prilosec 40mg PO QDAC Tramadol HCL 50mg PO twice a day PRN ALLERGIES: No known allergies NEW PRESCRIPTIONS: Lexapro 10mg take one half tablet by mouth at bedtime for one week, then following that first week take one tablet by mouth at bedtime. DIET INSTRUCTIONS: Healthy heart ACTIVITY: Get plenty of rest at home. Gradually increase activity level according to toleration. Do no return to work until 01/22/17. SMOKING: Current every day smoker. Smoking cessation has been discussed with Ms. Ivy, she is aware of the added risk continuation causes to her health. She has cut down on the frequency of smoking, but has not committed to complete cessation. Will continue to provide encouragement and support towards complete cessation. DISEASE SPECIFIC EDUCATION: Chest pain Fibromyalgia Home medications New prescriptions Activity Followup HOSPITAL COURSE: The patient is a 56 year old female arrived through [facility] complaining of chest pain. She states that she had a lot of stress and has been working a lot lately.She was placed on routine telemetry orders with a chest pain work up. All of her cardiac markers were negative. Dr. Brito performed a stress echo which was negative for sort of blockage. Today on the day of discharge she states that she has not had any sort of chest pain or tightness. She thinks that part of this has been brought on due to stress and anxiety at home due to financial obligations. 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 This morning we discussed treating her anxiety. She already take Ativan 0.5mg at bedtime a half tablet. She states that she used to be on Cymbalta and we will place her on Lexapro. At discharge start 10mg half tablet for a week and then increase to a whole tablet at 10mg. She also states that she would like to return to work this week. She will be seen in our office on Thursday and then we will see about releasing her for work on . For today and tomorrow she is to continue to rest. Her blood pressure was elevated upon admission in the emergency room. On the day of discharge; temperature 97.4, pulse 59, respiratory rate 16, blood pressure 89/ 58 and oxygen saturation 97%. She has been eating 50-100% of her meals. During her hospital stay she has been getting Valium 5mg Q 8 hours as needed along with Toradol 15mg Q 6 hours as needed. Since both of these have seemed to have helped her symptoms and Dobutamine stress echo was negative we will assume that this is anxiety related and we will continue to try and treat this as best as we can as outpatient. Stress management techniques were discussed and we will followup with her on Thursday in the office. Labs were stable at time of discharge; hgb 11.4, hct 33.9, plt count 212, WBC 10.4, sodium 143, potassium 4.4, BUN 12 and creatinine 0.73. The possibility of this also being a fibromyalgia type diagnosis was also discussed with the patient due to her symptoms of pain, chronic fatigue, anxiety, stress and history of depression and this was discussed in detail with this patient and we will treat her accordingly. TIME SPENT: More than 60 minutes. CARLEE
== END 2017-01-19 12:10 | disposition home or self-care (01) | DRG 313 ==
LOC: ED 12:59 → MEDSURG B 15:31
PROVIDERS: ADMIT Internal Medicine; ATTEND Internal Medicine
DX: R07.89 Other chest pain (principal); R68.84 Jaw pain; E78.5 Hyperlipidemia, unspecified; M79.7 Fibromyalgia; I34.1 Nonrheumatic mitral (valve) prolapse; R06.02 Shortness of breath; F41.8 Other specified anxiety disorders; R53.82 Chronic fatigue, unspecified; J44.9 Chronic obstructive pulmonary disease, unspecified; K21.9 Gastro-esophageal reflux disease without esophagitis; G43.909 Migraine, unspecified, not intractable, without status migrainosus; M26.609 Unspecified temporomandibular joint disorder, unspecified side; M47.892 Other spondylosis, cervical region; M54.12 Radiculopathy, cervical region; M54.2 Cervicalgia; F17.210 Nicotine dependence, cigarettes, uncomplicated; Z79.899 Other long term (current) drug therapy; Z98.890 Other specified postprocedural states; Z82.49 Family history of ischemic heart disease and other diseases of the circulatory system
CPT/HCPCS: 36415; 80053; 81001; 82550; 82553; 82803; 83880; 84484; 85025; 85379; 93005; 93010; 96374; 96375; 99223; 99232; 99238; 99284

== ENCOUNTER 2017-03-31 16:46 | Emergency (ER) ==
[2017-03-31 16:49] VITALS: BP 131/85; TEMP 98.2; BMI 25.7
== END 2017-03-31 18:36 | disposition left against medical advice (07) ==
LOC: ED 16:46
DX: R51 Headache (principal); R52 Pain, unspecified; R50.9 Fever, unspecified; F17.210 Nicotine dependence, cigarettes, uncomplicated

== ENCOUNTER 2017-04-01 06:45 | Emergency (ER) ==
[2017-04-01 06:56] VITALS: BP 115/80; TEMP 97.6; BMI 26.6
[2017-04-01] MEDS ORDERED: NORCO 10-325 PO STA (07:20)
[2017-04-01 07:40] LABS: BILIRUBIN,URINE Negative (NEGATIVE); KETONES,URINE Negative (NEGATIVE); LEUKOCYTE ESTERASE ,URINE Negative (NEGATIVE); NITRITE,URINE Negative (NEGATIVE); PH,URINE 5.5 (5-9); PROTEIN,URINE Negative (NEGATIVE); URINE, BLOOD Trace-intact (NEGATIVE)
[2017-04-01 07:46] LABS: ADD URINE MICROSCOPIC YES
[2017-04-01 07:47] LABS: BASOPHILS # (AUTO) 0.1 K/uL (0-0.2); EOSINOPHILS # (AUTO) 0.2 K/ul (0.0-0.7); EOSINOPHILS % (AUTO) 4.4 % (0.0-7.0); HEMOGLOBIN 13.7 g/dl (12.0-16.0); LYMPHOCYTES # (AUTO) 2.2 K/uL (0.60-3.4); LYMPHOCYTES % (AUTO) 43.7 (10.0-50.0); MEAN CORPUSCULAR HEMOGLOBIN 31.4 pg (27.0-31.0); MEAN CORPUSCULAR HGB CONC 34.3 (31.8-35.4); MEAN CORPUSCULAR VOLUME 91.7 fl (81.0-99.0); MONOCYTES # (AUTO) 0.4 K/uL (0.4-2.0); MONOCYTES % (AUTO) 8.5 (0-10); NEUTROPHILS # (AUTO) 2.1 K/ul (2.0-6.9); NEUTROPHILS % (AUTO) 42.4; PLATELET COUNT 221 10^3/uL (140-440); RED BLOOD COUNT 4.36 10^6/ul (4.20-5.40); WHITE BLOOD COUNT 5.03 K/ul (4.6-10.2)
[2017-04-01 07:53] LABS: FLU INTERNAL QC INTERNAL QC VALID; RAPID FLU A NEGATIVE (NEGATIVE); RAPID FLU B NEGATIVE (NEGATIVE)
[2017-04-01 08:05] LABS: ALBUMIN 3.8 g/dL (3.4-5.0); ALBUMIN/GLOBULIN RATIO 1.23; BILIRUBIN,TOTAL 0.53 mg/dL (0.00-1.20); BUN/CREATININE RATIO 9.75; CALCIUM 9.5 mg/dL (8.2-10.2); CREATININE 0.82 mg/dL (0.60-1.30); TOTAL PROTEIN 6.9 g/dL (6.4-8.2)
--- NOTE | 2017-04-01 08:14 | DI ---
EXAM: Two-view chest HISTORY: Cough TECHNIQUE: Frontal and lateral views of the chest were obtained. Comparison 01/17/2017. FINDINGS: The heart is stable size. Lungs are clear. The pulmonary vasculature appears normal. A dorsal column stimulator is seen projected over the mid to lower thoracic spine. IMPRESSION: No active cardiopulmonary disease.
--- NOTE | 2017-04-01 08:22 | CT ---
EXAM: CT BRAIN HISTORY: Head pain TECHNIQUE: CT brain without intravenous contrast. 5-mm axial sections with Reformations. COMPARISON: 02/10/2013 FINDINGS: There is asymmetry atrophy, mainly of the frontal lobes. There is at least mild periventricular and deep white matter low attenuation which although nonspecific is suggestive of chronic microvascular i schemic change. These findings are stable. Brain parenchyma is unremarkable without distinct evidenc e of hemorrhage or large vessel distribution recent ischemic infarction. There is no suggestion of a cute hydrocephalus or subdural fluid collection. No mass or mass effect. Cranium is within normal limits. Small bilateral mastoid process effusions. There may be minimal muc osal thickening of the visualized paranasal sinuses. IMPRESSION: 1. No obvious acute intracranial process or change since prior study. 2. Small mastoid process effusions. 3. Questionable minimal mucosal thickening in the paranasal sinuses.2
--- NOTE | 2017-04-01 08:43 | ED.PDOC ---
General ED Provider: Dr. PEDRO DENNIS Chief Complaint: Headache Stated Complaint: headache Time Seen by Physician: 07:00 Mode of Arrival: Walk-In Information Source: Patient Exam Limitations: No limitations Primary Care Provider: ILIR HIRSCH Nursing and Triage Documentation Reviewed and Agree: Yes (seen with trina) Neurological Complaint Exam - Headache Complaint/Exam Onset: Gradual Duration: 1 week Symptoms Are: Still present Timing: Intermittent Episodes Lasting: Days Worst Headache Ever: No Initial Severity: Moderate Current Severity: Mild Location: Diffuse Character: Reports: Dull, Typical headache Aggravating: Reports: None Alleviating: Reports: None Associated Signs and Symptoms: Reports: Nausea. Denies: Dizziness, Seizure, Vomiting, Sinus pressure, Fever, Neck pain, Neck stiffness, Decreased LOC, Visual changes Related History: Reports: Similar episode Related Surgical History: Reports: None SAH Risk Factors: Reports: None Meningitis Risk Factors: Reports: None SDH Risk Factors: Reports: None Temporal Arteritis Risk Factors: Reports: Female, Fundoscopic Exam: Present: Normal Findings Papilledema Present: No Temporal Artery Tenderness: Present: None Sinus Tenderness: Present: None TMJ Tenderness: Present: None Glascow Coma Scale (see protocol): 15 Meningeal Signs Positive: No Pain on Passive Flexion-Positive Kernig's: No ROM Limited In: No Limitiations Focal Weakness: Present: None Focal Sensory Loss: Present: None Gait: Normal Nystagmus Present: No Gag Reflex Present: Yes Differential Diagnoses: Migraine, Tension Headache Review of Systems - Review Of Systems Constitutional: Reports: Chills, Malaise Eyes: Reports: No symptoms Ears, Nose, Mouth, Throat: Reports: No symptoms Respiratory: Reports: No symptoms Cardiac: Reports: No symptoms GI: Reports: Nausea : Reports: No symptoms Musculoskeletal: Reports: No symptoms Skin: Reports: No symptoms Neurological: Reports: No symptoms Endocrine: Reports: No symptoms Hematologic/Lymphatic: Reports: No symptoms All Other Systems: Reviewed and Negative Past Medical History - Past Medical History Previously Healthy: Yes Endocrine: Reports: Dyslipidemia Cardiovascular: Reports: None Respiratory: Reports: None Hematological: Reports: None Gastrointestinal: Reports: GERD Genitourinary: Reports: None Neuro/Psych: Reports: Migraine Musculoskeletal: Reports: None Cancer: Reports: None Last Menstrual Period: PT HAS HAD A HYSTERECTOMY - Surgical History General Surgical History: Reports: Cholecystectomy, Other (cts) - Family History Family History: Reports: Unknown - Social History Smoking Status: Current every day smoker, Heavy tobacco smoker Hx Substance Use: No Alcohol Screening: Occasionally - Immunizations Tetanus Shot up to Date: Yes Physical Exam - Physical Exam Appearance: Well-appearing, No pain distress, Well-nourished Eyes: DWIGHT, EOMI, Conjunctiva clear ENT: Ears normal, Nose normal, Oropharynx normal Respiratory: Airway patent, Breath sounds clear, Breath sounds equal, Respirations nonlabored Cardiovascular: RRR, Pulses normal, No rub, No murmur GI/: Soft, Nontender, No masses, Bowel sounds normal, No Organomegaly Musculoskeletal: Normal strength, ROM intact, No edema, No calf tenderness Skin: Warm, Dry, Normal color Neurological: Sensation intact, Motor intact, Reflexes intact, Cranial nerves intact, Alert, Oriented Psychiatric: Affect appropriate, Mood appropriate Interpretation - Radiology Interpretation Radiology Interpretation By: Radiologist Radiology Results: No acute changes Critical Care Note - Critical Care Note Total Time (mins): 0 Course - Course Hematology/Chemistry: 04/01/17 07:40 04/01/17 07:40 Orders, Labs, Meds: Lab Review 04/01/17 04/01/17 04/01/17 07:20 07:20 07:40 WBC 5.03 RBC 4.36 Hgb 13.7 Hct 40.0 MCV 91.7 MCH 31.4 H MCHC 34.3 RDW Coeff of Patric 12.6 Plt Count 221 Immature Gran % (Auto) 0.0 Neut % (Auto) 42.4 Lymph % (Auto) 43.7 [place] % (Auto) 8.5 Eos % (Auto) 4.4 Baso % (Auto) 1.0 Immature Gran # (Auto) 0.0 Neut # 2.1 Lymph # 2.2 [place] # 0.4 Eos # 0.2 Baso # 0.1 Sodium Potassium Chloride Carbon Dioxide Anion Gap BUN Creatinine Estimated GFR (MDRD) BUN/Creatinine Ratio Glucose Calcium Total Bilirubin AST ALT Alkaline Phosphatase Total Protein Albumin Globulin Albumin/Globulin Ratio Urine Color Yellow Urine Clarity Clear Urine pH 5.5 Ur Specific [place] 1.010 Urine Protein Negative Urine Glucose (UA) Negative Urine Ketones Negative Urine Blood Trace-intact Urine Nitrite Negative Urine Bilirubin Negative Urine Urobilinogen 0.2 Ur Leukocyte Esterase Negative Urine Microscopic RBC 0-2 Ur Squamous Epith Cells 0-2 Influenza A (Rapid) Negative Influenza B (Rapid) Negative 04/01/17 07:40 WBC RBC Hgb Hct MCV MCH MCHC RDW Coeff of Patric Plt Count Immature Gran % (Auto) Neut % (Auto) Lymph % (Auto) [place] % (Auto) Eos % (Auto) Baso % (Auto) Immature Gran # (Auto) Neut # Lymph # [place] # Eos # Baso # Sodium 140 Potassium 4.0 Chloride 108 H Carbon Dioxide 24 Anion Gap 12.0 BUN 8 Creatinine 0.82 Estimated GFR (MDRD) 73.00 BUN/Creatinine Ratio 9.75 Glucose 98 Calcium 9.5 Total Bilirubin 0.53 AST 19 ALT 17 Alkaline Phosphatase 113 H Total Protein 6.9 Albumin 3.8 Globulin 3.1 Albumin/Globulin Ratio 1.23 Urine Color Urine Clarity Urine pH Ur Specific [place] Urine Protein Urine Glucose (UA) Urine Ketones Urine Blood Urine Nitrite Urine Bilirubin Urine Urobilinogen Ur Leukocyte Esterase Urine Microscopic RBC Ur Squamous Epith Cells Influenza A (Rapid) Influenza B (Rapid) Orders Category Date Time Status CBC W/ AUTO DIFF Stat LAB 04/01/17 07:40 Completed COMPREHENSIVE METABOLIC PANEL Stat LAB 04/01/17 07:40 Completed MOLECULAR GROUP A STREP Stat LAB 04/01/17 07:20 Results RAPID FLU A/B Stat LAB 04/01/17 07:20 Completed STREP SCREEN Stat LAB 04/01/17 07:20 Results URINALYSIS C & S IF INDICATED Stat LAB 04/01/17 07:20 Completed Hydrocodone Bit/Acetaminophen [[place] 10-325] MEDS 04/01/17 07:20 Discontinued 1 tab PO ONCE STA CHEST, 2 VIEWS PA & LAT Stat RADS 04/01/17 07:[address] HEAD W/O CONTRAST Stat RADS 04/01/17 07:20 Completed Medications Discontinued Medications Generic Name Dose Route Start Last Admin Trade Name Freq PRN Reason Stop Dose Admin Acetaminophen/Hydrocodone Bitart 1 tab 04/01/17 07:20 04/01/17 07:29 [place] 10-325 PO 04/01/17 07:21 1 tab ONCE STA Administration Vital Signs: Temp Pulse Resp BP Pulse Ox 04/01/17 06:46 97.6 F 63 18 115/80 95 Departure - Departure Time of Disposition: 08:43 Disposition: HOME SELF-CARE Discharge Problem: Headache Headache Qualifiers: Headache type: unspecified Headache chronicity pattern: unspecified pattern Instructions: Migraine Headache (ED) Condition: Good Pt referred to PMD for follow-up: Yes Additional Instructions: Please call your Family Physician as soon as possible to schedule a follow-up appointment. Prescriptions: Hydrocodone/Acetaminophen [[place] 10-325 Tablet] 1 each PO Q8HR #7 tablet Allergies/Adverse Reactions: Allergies No Known Allergies Allergy (Verified 04/01/17 06:56) Home Medications: Ambulatory Orders Diazepam [Valium] 5 mg PO Q8HR PRN 02/10/13 Omeprazole [Prilosec] 40 mg PO DAILY 10/18/15 Gabapentin 600 mg PO TID 04/22/16 Tramadol HCl 50 mg PO BID PRN 04/22/16 Atorvastatin Calcium [Lipitor] 10 mg PO BEDTIME 01/17/17 Escitalopram Oxalate [Lexapro] 10 mg PO BEDTIME #30 tablet 01/19/17 Hydrocodone/Acetaminophen [[place] 10-325 Tablet] 1 each PO Q8HR #7 tablet Lorazepam [Ativan] 1 mg PO BEDTIME 04/01/17
== END 2017-04-01 08:58 | disposition home or self-care (01) ==
LOC: ED 06:45
DX: R51 Headache (principal); R11.0 Nausea; R68.83 Chills (without fever); R53.81 Other malaise; F17.210 Nicotine dependence, cigarettes, uncomplicated; Z79.899 Other long term (current) drug therapy
CPT/HCPCS: 36415; 80053; 81001; 85025; 87651; 87804; 87880; 99283

== ENCOUNTER 2017-04-28 07:58 | Outpatient (CLI) | payer OTHER ==
--- NOTE | 2017-04-29 09:10 | MAMMO ---
EXAM: Bilateral digital screening mammogram (2-D and 3-D) History: Screening Comparison: Bilateral mammogram 09/14/2015 Findings: MLO and CC views of bilateral breasts demonstrate scattered fibroglandular breast parenchy ma. CAD was reviewed by the radiologist. Tomosynthesis was performed. There are no dominant masses , no suspicious microcalcifications and no architectural distortions Impression: Stable negative mammogram. Recommend followup routine screening mammography in 1 year. BIRADS 1
== END 2017-04-28 07:59 | disposition home or self-care (01) ==
LOC: RAD 07:58
PROVIDERS: ATTEND Internal Medicine
DX: Z12.31 Encounter for screening mammogram for malignant neoplasm of breast (principal)
CPT/HCPCS: 77067

== ENCOUNTER 2017-06-12 09:37 | Outpatient (CLI) ==
--- NOTE | 2017-06-12 10:12 | DI ---
EXAM: Chest two views HISTORY: Chronic cough COMPARISON: 04/01/2017 TECHNIQUE: Two views of the chest were performed FINDINGS: The lungs are clear. There is no pleural effusion or pneumothorax. The heart is normal i n size. The mediastinal contour is normal. There are no acute abnormalities of the bones. Spinal st imulator present. IMPRESSION: No acute cardiopulmonary process.
[2017-06-12 10:26] LABS: BASOPHILS # (AUTO) 0.1 K/uL (0-0.2); BASOPHILS % (AUTO) 0.5 % (0.0-3.0); EOSINOPHILS # (AUTO) 0.1 K/ul (0.0-0.7); HEMATOCRIT 37.7 % (37.0-47.0); HEMOGLOBIN 13.2 g/dl (12.0-16.0); IMMATURE GRANULOCYTE % (AUTO) 0.3 % (0.0-5.0); LYMPHOCYTES # (AUTO) 3.9 K/uL (0.60-3.4); LYMPHOCYTES % (AUTO) 35.1 (10.0-50.0); MEAN CORPUSCULAR VOLUME 91.5 fl (81.0-99.0); MONOCYTES # (AUTO) 0.8 K/uL (0.4-2.0); MONOCYTES % (AUTO) 6.9 (0-10); NEUTROPHILS # (AUTO) 6.3 K/ul (2.0-6.9); NEUTROPHILS % (AUTO) 56.2; PLATELET COUNT 244 10^3/uL (140-440); RED BLOOD COUNT 4.12 10^6/ul (4.20-5.40); WHITE BLOOD COUNT 11.16 K/ul (4.6-10.2)
[2017-06-12 10:56] LABS: ALBUMIN 3.9 g/dL (3.4-5.0); ALBUMIN/GLOBULIN RATIO 1.11; ANION GAP 12.6; BILIRUBIN,TOTAL 0.22 mg/dL (0.00-1.20); BUN/CREATININE RATIO 14.11; CALCIUM 9.3 mg/dL (8.2-10.2); CHOL/HDL RATIO 3.3 (4.5-5.5); CREATININE 0.85 mg/dL (0.60-1.30); POTASSIUM 3.6 mmol/L (3.5-5.10); TOTAL PROTEIN 7.4 g/dL (6.4-8.2)
== END 2017-06-12 09:38 | disposition home or self-care (01) ==
LOC: RAD 09:37
PROVIDERS: ATTEND Internal Medicine
DX: R05 Cough (principal); G43.909 Migraine, unspecified, not intractable, without status migrainosus; E78.5 Hyperlipidemia, unspecified
CPT/HCPCS: 36415; 80053; 80061; 83036; 84443; 85025

== ENCOUNTER 2017-06-19 13:46 | Outpatient (CLI) | payer OTHER ==
--- NOTE | 2017-06-19 14:41 | CT ---
Exam: CT of the brain without intravenous contrast. Comparison: 04/01/2017. Reason for exam: Migraine. FINDINGS: There is polypoid mucosal thickening in the right maxillary sinus. No acute intracranial hemorrhage, mass effect, ventricular dilatation, or territorial infarction. The quadrigeminal and am bient cisterns are patent. There is no extraaxial fluid collection. The calvarium is intact. No de pressed skull fractures. The left maxillary sinus, frontal sinuses, and sphenoid sinuses are normall y pneumatized without air-fluid levels. There are parenchymal changes seen consistent with chronic mi crovascular disease Impression: 1. No acute intracranial findings. 2. Parenchymal changes consistent with chronic microvascular disease. 3. Polypoid mucosal thickening in the right maxillary sinus. Report faxed at 1436 hours hours on 06/19/2017.
== END 2017-06-19 13:47 | disposition home or self-care (01) ==
LOC: RAD 13:46
PROVIDERS: ATTEND Internal Medicine
DX: G43.909 Migraine, unspecified, not intractable, without status migrainosus (principal)

== ENCOUNTER 2017-08-07 07:44 | Outpatient (CLI) | END 2017-08-07 07:45 | disposition home or self-care (01) | LOC: LAB 07:44 | PROVIDERS: ATTEND Internal Medicine | DX: R68.89 Other general symptoms and signs (principal) | CPT/HCPCS: 87502 ==

== ENCOUNTER 2017-11-13 10:09 | Outpatient (CLI) ==
--- NOTE | 2017-11-13 11:19 | MAMMO ---
EXAM: Digital diagnostic left breast mammogram with tomosynthesis and left breast ultrasound HISTORY: Tenderness COMPARISON: 04/28/2017 FINDINGS: Mammogram: Digital diagnostic MLO and CC views of the left breast were performed. Tomosynthesis was performed. Computer aided detection utilized. The breast tissue is heterogeneously dense, which could obscure sm all masses. There is no evidence for mass, asymmetry, distortion, or suspicious calcifications in th e left breast. Ultrasound: Left breast ultrasound was performed in the region of pain, 12-02 o'clock position. No sonographic ab normality identified. No mass or cyst identified. IMPRESSION: 1. Negative left breast mammogram and ultrasound. Recommend clinical follow-up in regards to the pa tient's pain. 2. Annual screening mammogram is recommended, back on schedule. BIRADS category 1, negative examination
== END 2017-11-13 10:10 | disposition home or self-care (01) ==
LOC: RAD 10:09
PROVIDERS: ATTEND Internal Medicine
DX: N64.4 Mastodynia (principal)

== ENCOUNTER 2018-01-05 09:29 | Observation (INO) | payer OTHER ==
--- NOTE | 2018-01-05 11:00 | ED.PDOC ---
General ED Provider: Dr. NEGRO BILLY Chief Complaint: Non-specific Complaint Stated Complaint: Confusion, head fullness and feeling out of sorts. Onset 0730 AM this date. Stated feels like head is a balloon, very full, at times confused, difficulty finding thought and words. Is oriented X 3. Oriented to workplace and to provider . Hx migraine in past; Denies headache currently. Admits to past hx of tick bite on multipe occurences. Previous CT head revealed no acute findings but chronic parenchymal changes consistent with microvascular disease. Time Seen by Physician: 10:15 Mode of Arrival: Walk-In Information Source: Patient Exam Limitations: No limitations Primary Care Provider: ILIR HIRSCH Nursing and Triage Documentation Reviewed and Agree: Yes Does patient meet sepsis criteria?: No System Inflammatory Response Syndrome: Not Applicable Sepsis Protocol: For patient's 13 years and over: Temp is 96.8 and below OR 101 and greater Pulse >90 BPM Resp >20/minute Acutely Altered Mental Status Are patient's symptoms suggestive of a new infection, such as: -Pneumonia -Skin, Soft Tissue -Endocarditis -UTI -Bone, Joint Infection -Implantable Device -Acute Abdominal Infection -Wound Infection -Meningitis -Blood Stream Catheter Infection -Unknown Neurological Complaint Exam - Headache Complaint/Exam Duration: 3 hours Symptoms Are: Still present Timing: Constant Episodes Lasting: Hours Initial Severity: Moderate Current Severity: Moderate Location: Diffuse, Frontal Character: Reports: Pressure (fullness sensation/ cloudiness sensation ) Aggravating: Reports: None Alleviating: Reports: None Associated Signs and Symptoms: Reports: Dizziness Related History: Reports: Similar episode Related Surgical History: Reports: None SAH Risk Factors: Reports: None Meningitis Risk Factors: Reports: None SDH Risk Factors: Reports: None Temporal Arteritis Risk Factors: Reports: None Normal Head CT Within Last 12 Months: Yes Fundoscopic Exam: Present: Normal Findings Papilledema Present: No Temporal Artery Tenderness: Present: None Sinus Tenderness: Present: None TMJ Tenderness: Present: None Meningeal Signs Positive: No Pain on Passive Flexion-Positive Kernig's: No ROM Limited In: No Limitiations Focal Weakness: Present: None Focal Sensory Loss: Present: None Gait: Unsteady Nystagmus Present: No Gag Reflex Present: No [id number]: Normal Findings Romberg Test Positive: No Heel to Toe Normal: Yes Differential Diagnoses: TIA, Migraine, Subarachnoid Hemorrhage, Tension Headache , Viral Syndrome, Other (lymes disease exposure) - Altered Mental Status Complaint/Exam Current Mental Status: Confusion Onset: Sudden Symptoms Are: Still present Initial Severity: Moderate Character: Reports: Confusion Aggravating: Reports: None Alleviating: Reports: None Associated Signs and Symptoms: Denies: Dizziness, Weakness, Headache, Fever, Illness, Nuchal rigidity, Seizure, Nausea, Vomiting, Recently depressed, Trauma Related History: Denies: Similar episode Cardiac Risk Factors: Reports: None CVA Risk Factors: Reports: None Related Surgical History: Reports: None Carotid Bruit Present: No Nystagmus Present: No Gag Reflex Present: No Meningeal Signs Positive: No Focal Weakness: Present: None Focal Sensory Loss: Present: None Gait: Unsteady Rilbon-ap-Tuuh: Normal Findings Romberg Test Positive: No Babinski Sign: Negative Right, Negative Left Heel to Toe Normal: Yes Signs of Injury: Present: Normal findings Thrombolytics Considered: No Differential Diagnoses: Hypoglycemia, TIA Review of Systems - Review Of Systems Constitutional: Reports: No symptoms Eyes: Reports: No symptoms Ears, Nose, Mouth, Throat: Reports: No symptoms Respiratory: Reports: No symptoms Cardiac: Reports: No symptoms GI: Reports: No symptoms : Reports: No symptoms Musculoskeletal: Reports: No symptoms Skin: Reports: No symptoms Neurological: Reports: No symptoms, Cognitive dysfunction Endocrine: Reports: No symptoms Hematologic/Lymphatic: Reports: No symptoms All Other Systems: Reviewed and Negative Past Medical History - Past Medical History Previously Healthy: Yes Endocrine: Reports: Dyslipidemia Cardiovascular: Reports: None Respiratory: Reports: None Hematological: Reports: None Gastrointestinal: Reports: GERD Genitourinary: Reports: None Neuro/Psych: Reports: Migraine, Anxiety Musculoskeletal: Reports: None, Back Pain Cancer: Reports: None Last Menstrual Period: hysterectomy - Surgical History General Surgical History: Reports: Cholecystectomy, Other (cts Back surgery), Unknown - Family History Family History: Reports: Unknown - Social History Smoking Status: Current every day smoker, Heavy tobacco smoker Hx Substance Use: No Alcohol Screening: Occasionally Physical Exam - Physical Exam Appearance: Well-appearing, No pain distress, Well-nourished Ill-appearing: Mild Pain Distress: None Eyes: DWIGHT, EOMI, Conjunctiva clear ENT: Ears normal, Nose normal, Oropharynx normal Neck: Supple Respiratory: Airway patent, Breath sounds clear, Breath sounds equal, Respirations nonlabored Cardiovascular: RRR, Pulses normal, No rub, No murmur GI/: Soft, Nontender, No masses, Bowel sounds normal, No Organomegaly Musculoskeletal: Normal strength, ROM intact, No edema, No calf tenderness Skin: Warm, Dry, Normal color Neurological: Sensation intact, Motor intact, Reflexes intact, Cranial nerves intact, Alert, Oriented Psychiatric: Anxious Interpretation - Radiology Interpretation Radiology Results: No acute changes Exam Interpreted: CT Scan Physician Notification - Case Discussed Physician Notified: DR Hirsch-discussed changes and concerns-agrees with admit and work up Time of Notification: 12:50 Critical Care Note - Critical Care Note Total Time (mins): 60 Course - Course Hematology/Chemistry: 01/05/18 11:00 01/05/18 11:00 Orders, Labs, Meds: Lab Review 01/05/18 01/05/18 01/05/18 11:00 11:00 11:00 WBC 6.46 RBC 4.07 L Hgb 12.8 Hct 38.1 MCV 93.6 MCH 31.4 H MCHC 33.6 RDW Coeff of Patric 12.6 Plt Count 227 Immature Gran % (Auto) 0.2 Neut % (Auto) 49.9 Lymph % (Auto) 38.7 [place] % (Auto) 8.0 Eos % (Auto) 2.6 Baso % (Auto) 0.6 Immature Gran # (Auto) 0.0 Neut # (Auto) 3.2 Lymph # (Auto) 2.5 [place] # (Auto) 0.5 Eos # (Auto) 0.2 Baso # (Auto) 0.0 ESR 7 Sodium 141 Potassium 4.2 Chloride 107 Carbon Dioxide 26 Anion Gap 12.2 BUN 14 Creatinine 0.78 Estimated GFR (MDRD) 77.00 BUN/Creatinine Ratio 17.94 Glucose 96 Calcium 9.5 Total Bilirubin 0.4 AST 19 ALT 17 Alkaline Phosphatase 89 Total Protein 7.0 Albumin 3.7 Globulin 3.3 Albumin/Globulin Ratio 1.12 Triglycerides 251 H Cholesterol 278 H LDL Cholesterol, Calc 173 VLDL Cholesterol 50 H HDL Cholesterol 55 Cholesterol/HDL Ratio 5.1 TSH 1.553 Free T4 1.00 Urine Color Urine Clarity Urine pH Ur Specific [place] Urine Protein Urine Glucose (UA) Urine Ketones Urine Blood Urine Nitrite Urine Bilirubin Urine Urobilinogen Ur Leukocyte Esterase Urine Opiates Screen Ur Oxycodone Screen Urine Methadone Screen Ur Propoxyphene Screen Ur Barbiturates Screen U Tricyclic Antidepress Ur Phencyclidine Scrn Ur Amphetamine Screen U Methamphetamines Scrn U Benzodiazepines Scrn Urine Cocaine Screen U Cannabinoids Screen 01/05/18 01/05/18 11:00 11:00 WBC RBC Hgb Hct MCV MCH MCHC RDW Coeff of Patric Plt Count Immature Gran % (Auto) Neut % (Auto) Lymph % (Auto) [place] % (Auto) Eos % (Auto) Baso % (Auto) Immature Gran # (Auto) Neut # (Auto) Lymph # (Auto) [place] # (Auto) Eos # (Auto) Baso # (Auto) ESR Sodium Potassium Chloride Carbon Dioxide Anion Gap BUN Creatinine Estimated GFR (MDRD) BUN/Creatinine Ratio Glucose Calcium Total Bilirubin AST ALT Alkaline Phosphatase Total Protein Albumin Globulin Albumin/Globulin Ratio Triglycerides Cholesterol LDL Cholesterol, Calc VLDL Cholesterol HDL Cholesterol Cholesterol/HDL Ratio TSH Free T4 Urine Color Yellow Urine Clarity Clear Urine pH 7.0 Ur Specific [place] 1.010 Urine Protein Negative Urine Glucose (UA) Negative Urine Ketones Negative Urine Blood Negative Urine Nitrite Negative Urine Bilirubin Negative Urine Urobilinogen 0.2 Ur Leukocyte Esterase Negative Urine Opiates Screen Negative Ur Oxycodone Screen Negative Urine Methadone Screen Negative Ur Propoxyphene Screen Negative Ur Barbiturates Screen Negative U Tricyclic Antidepress Negative Ur Phencyclidine Scrn Negative Ur Amphetamine Screen Negative U Methamphetamines Scrn Negative U Benzodiazepines Scrn Negative Urine Cocaine Screen Negative U Cannabinoids Screen Negative Orders Category Date Time Status EKG-(ED ONLY) Stat CARDIO 01/05/18 10:39 Completed NPO REMINDER: LAB TEST ONCE CARE 01/05/18 10:41 Completed IV [ED IV/MEDIPORT/POWERPORT] .ONCE EMERGENCY 01/05/18 10:39 Active CBC W/ AUTO DIFF Stat LAB 01/05/18 11:00 Completed CMP [COMPREHENSIVE METABOLIC PANEL] Stat LAB 01/05/18 11:00 Completed EHRLICHIA DNA, PCR Stat LAB 01/05/18 11:00 Received ESR Stat LAB 01/05/18 11:00 Completed FREE T4 (FREE THYROXINE) Stat LAB 01/05/18 11:00 Completed LIPID PANEL Stat LAB 01/05/18 11:00 Completed LYME, WESTERN BLOT, SERUM Stat LAB 01/05/18 11:00 Received EDWIN MTN SPOTTED FEVER,IgG Stat LAB 01/05/18 11:00 Received EDWIN MTN SPOTTED FEVER,IgM Stat LAB 01/05/18 11:00 Received THYROID STIMULATING HORMONE Stat LAB 01/05/18 11:00 Completed UA [URINALYSIS C & S IF INDICATED] Stat LAB 01/05/18 11:00 Completed URINE DRUG SCREEN (RAPID FOR ED) [DRUG SCREEN, URINE, LAB 01/05/18 11:00 Completed RAPID] Stat 0.9 % Sodium Chloride [Saline Flush] MEDS 01/05/18 10:40 Active 1 syr IVF PRN PRN [address] HEAD W/O CONTRAST Stat RADS 01/05/18 10:39 Completed Medications Generic Name Dose Route Start Last Admin Trade Name Freq PRN Reason Stop Dose Admin Sodium Chloride 1 syr 01/05/18 10:40 Saline Flush IVF PRN PRN To flush IV Vital Signs: Temp Pulse Resp BP Pulse Ox 01/05/18 09:31 97.1 F L 62 20 155/85 H 98 Departure - Departure Time of Disposition: 13:00 Disposition: ADMITTED INPATIENT Discharge Problem: Confusion state, Weakness, Hyperlipidemia, Hx of migraine headaches, Mastoid disorder, Chronic cerebral ischemia Discharge Problem: (Ruled Out): Confusion and disorientation Condition: Good Pt referred to PMD for follow-up: Yes (Dr Hirsch) IPMP verified?: No Allergies/Adverse Reactions: Allergies No Known Allergies Allergy (Verified 01/05/18 09:38) Home Medications: Ambulatory Orders Diazepam [Valium] 5 mg PO Q8HR PRN 02/10/13 Omeprazole [Prilosec] 40 mg PO DAILY 10/18/15 Gabapentin 600 mg PO TID 04/22/16 Tramadol HCl 50 mg PO BID PRN 04/22/16 Atorvastatin Calcium [Lipitor] 10 mg PO BEDTIME 01/17/17 Escitalopram Oxalate [Lexapro] 10 mg PO BEDTIME #30 tablet 01/19/17 Melatonin [Melatin] 3 mg PO BEDTIME PRN 01/05/18 Disposition Discussed With: Patient, Family, Other (Dr Hirsch) Additional Information: 12:30 hrs Patient reassessed. States feeling better. Head feels less full. Feeling tired. Denies Headache 12:[address] Hirsch; Explained patients symptoms and changes; agrees with admit for additional evaluation Discussed with patient who agrees to admit
--- NOTE | 2018-01-05 11:49 | CT ---
EXAM: CT Head HISTORY: Confused, feels disconnected COMPARISON: 06/19/2017 TECHNIQUE: CT head performed without contrast FINDINGS: There is no mass effect, midline shift, or intracranial hemmorhage. Jackson white differenti ation is preserved. There is no extra-axial collection. The ventricles, sulci, and basal cisterns a re patent and symmetric. There is mild chronic ischemic disease of the white matter and cerebral vol ume loss. There is no depressed calvarial fracture. Bilateral mastoid effusions, right greater than left. Mucosalthickening right maxillary sinus. There are intracranial atherosclerotic calcification s. IMPRESSION: 1. No acute intracranial abnormality. 2. Mild chronic ischemic disease of the white matter and cerebral volume loss. 3. Bilateral mastoid effusions. 4. Sinus mucosal changes.
--- NOTE | 2018-01-05 14:20 | US ---
EXAM: ULTRASOUND CAROTID DUPLEX, BILATERAL HISTORY: Confusion, weakness FINDINGS: Martínez-scale ultrasound, color Doppler and spectral analysis was performed. Velocities are in meters per second. By martínez scale and color Doppler imaging, there were regions of heterogeneous plaque formation identif ied within the carotid bulbs and internal carotid arteries. These regions of plaque appeared to maggi in less than 50% vessel diameter. RIGHT: External carotid artery peak systolic velocity: 0.5 Common carotid artery peak systolic velocity/end diastolic velocity: 0.5/0.2 Internal carotid artery peak systolic velocity: 0.8 ICA/CCA peak systolic velocity ratio: 1.4 ICA end diastolic velocity: 0.3 LEFT: External carotid artery peak systolic velocity: 0.6 Common carotid artery peak systolic velocity/end diastolic velocity: 0.5/0.2 Internal carotid artery peak systolic velocity: 0.8 ICA/CCA peak systolic velocity ratio: 1.7 ICA end diastolic velocity: 0.4 The right and left vertebral arteries were antegrade. IMPRESSION: 1. By martínez scale and color Doppler imaging, there were regions of heterogeneous plaque formation javy ntified within the carotid bulbs and internal carotid arteries. These regions of plaque appeared to remain less than 50% vessel diameter. 2. Internal carotid artery peak systolic velocities and ICA/CCA peak systolic velocity ratios indica te no hemodynamically significant stenosis bilaterally. 3. Both vertebral arteries were antegrade.
[2018-01-05] MEDS: SODIUM CHLORIDE 1,000 ML IV SCH (14:48)
--- NOTE | 2018-01-05 14:51 | CT ---
EXAM: CT head with contrast HISTORY: Headache and feels foggy with blurred vision COMPARISON: None TECHNIQUE: CT head performed with contrast FINDINGS: There is no mass effect, midline shift identified. Jackson white differentiation is preserved. There is no extra-axial collection. The ventricles, sulci, and basal cisterns are patent and symmetr ic. There is mild chronic ischemic disease of the white matter and cerebral volume loss. There is no depressed calvarial fracture. Bilateral mastoid effusions, right greater than left. Mucosalthickening right maxillary sinus. There are intracranial atherosclerotic calcifications. No abnormal area of en hancement. IMPRESSION: 1. No acute intracranial abnormality identified. No abnormal area of enhancement. 2. Mild chronic ischemic disease of the white matter and cerebral volume loss. 3. Bilateral mastoid effusions. 4. Sinus mucosal changes.
[2018-01-05 15:09] VITALS: BMI 28.8
[2018-01-05] MEDS ORDERED: FIORICET PO PRN (16:17)
[2018-01-05] MEDS ORDERED: LEXAPRO PO SCH (21:00)
[2018-01-06] MEDS: SODIUM CHLORIDE 1,000 ML IV SCH (04:21)
[2018-01-06] MEDS ORDERED: PRILOSEC PO SCH (06:30)
[2018-01-06] MEDS ORDERED: NON-FORMULARY MEDICATION (Topiramate [Topamax] 25 MG) PO SCH (09:00)
[2018-01-06] MEDS ORDERED: TOPAMAX PO SCH (09:00)
[2018-01-06] MEDS ORDERED: NON-FORMULARY MEDICATION (Omeprazole [Prilosec] 40 MG) PO SCH (09:00)
--- NOTE | 2018-01-06 09:54 | PCM.PROG ---
Attending Provider: ATTENDING PROVIDER: Dr. ILIR HIRSCH DATE OF SERVICE: 01/06/18 SUBJECTIVE: This 57 year old WHITE/ F was hospitalized 01/05/18 on observation with some neurological symptoms. REVIEW OF SYSTEMS: CONSTITUTIONAL: No night sweats. No fatigue, malaise, lethargy. No fever or chills. HEENT: Eyes: No visual changes. No eye pain. No eye discharge. ENT: No runny nose. No epistaxis. No sinus pain. No odynophagia. No congestion. RESPIRATORY: No cough, no congestion. No hemoptysis. No shortness of breath. CARDIOVASCULAR: No angina symptoms. No CHF symptoms. No atypical chest pain for CAD. No palpitations. No orthopnea.. GASTROINTESTINAL: No abdominal pain. No nausea or vomiting. No diarrhea or constipation. No hematemesis. No hematochezia. GENITOURINARY: No urgency. No frequency. No dysuria. No hematuria. No obstructive symptoms. No discharge. No pain. No significant abnormal bleeding. MUSCULOSKELETAL: No musculoskeletal pain; no joint swelling. NEUROLOGICAL: Awake, alert, oriented to time, place and person. Positive for mild discomfort otherwise negative. No syncope. No seizures. No dizziness. PSYCHIATRIC: Not anxious. No depression. No suicidal thoughts. No homicidal thoughts. SKIN: No rash. No lesions. No wounds. ENDOCRINE: No unexplained weight loss. No weight gain. HEMATOLOGIC/LYMPHATIC: No anemia. No purpura. No petechiae. No prolonged or excessive bleeding. No palpable lymph nodes. PHYSICAL EXAMINATION: GENERAL: The patient is awake, alert and oriented, lying in bed in no distress. VITAL SIGNS: Temperature 97.7 F, Pulse 54, Respiratory Rate 14, BP 120/63, Pulse Ox 96% HEENT: Head normocephalic, atraumatic. Eyes: Extraocular muscles are intact. Pupils are equal, round and reactive to light and accommodation. Ears: No lesions. Nose appeared normal. Throat: No exudate or erythema. NECK: Supple. No JVD, no carotid bruit. No lymphadenopathy or thyromegaly. LUNGS: Clear to auscultation. Percussion note normal. Chest symmetrical. HEART: S1, S2, no S3. No murmurs. No cyanosis or clubbing. No ascites. Pulses: Dorsalis pedis and posterior tibial pulses +1 to +2 both sides. ABDOMEN: Soft. Non-tender. Bowel sounds active. No CVA tenderness. No mass felt. EXTREMITIES: No edema. Full range of motion of all extremities, equal. NEUROLOGIC: No focal deficit. Cranial nerves II through XII are grossly intact. No headache, no double vision or headache. SKIN: Warm and dry. Intact. Turgor-normal. LYMPHATIC: No palpable lymph nodes/no lymphedema. MUSCULOSKELETAL: Normal joints with no swelling. Muscle tone is normal. LAB REVIEW: 01/06/18 04:30 01/06/18 04:30 01/06/18 04:30: Sodium 139, Potassium 4.1, Chloride 109 H, Carbon Dioxide 23, Anion Gap 11.1, BUN 13, Creatinine 0.76, Estimated GFR (MDRD) 79.00, BUN/ Creatinine Ratio 17.10, Glucose 95, Calcium 9.0, Total Bilirubin 0.4, AST 16, ALT 16, Alkaline Phosphatase 90, Total Protein 6.3 L, Albumin 3.4, Globulin 2.9 , Albumin/Globulin Ratio 1.17 01/06/18 04:30: WBC 6.39, RBC 4.02 L, Hgb 12.8, Hct 37.4, MCV 93.0, MCH 31.8 H, MCHC 34.2, RDW Coeff of Patric 12.5, Plt Count 228, Immature Gran % (Auto) 0.2, Neut % (Auto) 39.1, Lymph % (Auto) 48.2, [place] % (Auto) 7.5, Eos % (Auto) 4.1, Baso % (Auto) 0.9, Immature Gran # (Auto) 0.0, Neut # (Auto) 2.5, Lymph # (Auto ) 3.1, [place] # (Auto) 0.5, Eos # (Auto) 0.3, Baso # (Auto) 0.1 01/05/18 11:00: Urine Color Yellow, Urine Clarity Clear, Urine pH 7.0, Ur Specific [place] 1.010, Urine Protein Negative, Urine Glucose (UA) Negative, Urine Ketones Negative, Urine Blood Negative, Urine Nitrite Negative, Urine Bilirubin Negative, Urine Urobilinogen 0.2, Ur Leukocyte Esterase Negative 01/05/18 11:00: Urine Opiates Screen Negative, Ur Oxycodone Screen Negative, Urine Methadone Screen Negative, Ur Propoxyphene Screen Negative, Ur Barbiturates Screen Negative, U Tricyclic Antidepress Negative, Ur Phencyclidine Scrn Negative, Ur Amphetamine Screen Negative, U Methamphetamines Scrn Negative, U Benzodiazepines Scrn Negative, Urine Cocaine Screen Negative, U Cannabinoids Screen Negative 01/05/18 11:00: ESR 7 01/05/18 11:00: Sodium 141, Potassium 4.2, Chloride 107, Carbon Dioxide 26, Anion Gap 12.2, BUN 14, Creatinine 0.78, Estimated GFR (MDRD) 77.00, BUN/ Creatinine Ratio 17.94, Glucose 96, Calcium 9.5, Total Bilirubin 0.4, AST 19, ALT 17, Alkaline Phosphatase 89, Total Protein 7.0, Albumin 3.7, Globulin 3.3, Albumin/Globulin Ratio 1.12, Triglycerides 251 H, Cholesterol 278 H, LDL Cholesterol, Calc 173, VLDL Cholesterol 50 H, HDL Cholesterol 55, Cholesterol/ HDL Ratio 5.1, TSH 1.553, Free T4 1.00 01/05/18 11:00: WBC 6.46, RBC 4.07 L, Hgb 12.8, Hct 38.1, MCV 93.6, MCH 31.4 H, MCHC 33.6, RDW Coeff of Patric 12.6, Plt Count 227, Immature Gran % (Auto) 0.2, Neut % (Auto) 49.9, Lymph % (Auto) 38.7, [place] % (Auto) 8.0, Eos % (Auto) 2.6, Baso % (Auto) 0.6, Immature Gran # (Auto) 0.0, Neut # (Auto) 3.2, Lymph # (Auto ) 2.5, [place] # (Auto) 0.5, Eos # (Auto) 0.2, Baso # (Auto) 0.0 ASSESSMENT: 1. Headache with problem finding words, cloudiness of thinking, all seem to be related to migraine. 2. CT scan of the head with contrast revealed microvascular disease. 3. Carotid scan is less than 50%, normal. 4. Telemetry shows no arrhythmias. PLAN: 1. Will get appointment with Dr. Littlejohn. 2. Echocardiogram. Plan and coordination of the patient's care discussed in the presence of Tool Maintenance Technician and nurse. CONDITION: Stable SCRIBED BY: JASON BLOOM, Statistical Clerk Advertising scribed while in presence of service performed by Dr. ILIR HIRSCH on 01/06/18 ([id number])
--- NOTE | 2018-01-06 10:50 | PN ---
DATE OF SERVICE: 01/05/18 SUBJECTIVE: The patient was seen and examined with Nurse Practitioner. The patient was hospitalized with difficulty verbalizing, less speech and had some difficulty walking with confusion. The patient did not have any lateralizing signs. The patient after being in the emergency room for a couple of hours felt better. Her CT scan of the head was negative for any acute events. She had microvascular disease. All of her electrolytes are practically normal. She doesn 't have any focal neurological deficit or meningeal signs. She doesn't have any fever, chills. She has history of migraine headaches. No double vision and no history of injury. CONDITION: Stable. TIME SPENT: More than 30 minutes. Plan and coordination of the patient's care discussed in the presence of nurse. CARLEE
--- NOTE | 2018-01-06 13:14 | HP ---
DATE OF SERVICE: 01/05/18 REASON FOR HOSPITALIZATION/HISTORY OF PRESENT ILLNESS: 57 year old white female who presents to the emergency room complaining that she is feeling out of sorts. She has kind of been confused,having difficulty finding the right words to say. She has history of migraines in the past but denies a headache. She has had some blurry vision, feels off balance when walking. 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 Fatigue. No fever or chills. HEENT: Eyes: No visual changes. No eye pain. No eye discharge. ENT: No runny nose. No epistaxis. No sinus pain. No sore throat. No odynophagia. No ear pain. No congestion. RESPIRATORY: No cough, no congestion. No hemoptysis. No shortness of breath. CARDIOVASCULAR: No angina symptoms. No CHF symptoms. No atypical chest pain for CAD. No palpitations. No PND. No orthopnea. GASTROINTESTINAL: No abdominal pain. No nausea or vomiting. No diarrhea or constipation. No hematemesis. No hematochezia. GENITOURINARY: No urgency. No frequency. No dysuria. No hematuria. No obstructive symptoms. No discharge. No pain. No significant abnormal bleeding. MUSCULOSKELETAL: No musculoskeletal pain. No joint swelling. No arthritis. NEUROLOGICAL: No headache. No neck pain. No syncope. No seizures. No dizziness. Bouts of confusion, difficulty with speech and blurry vision. PSYCHIATRIC: Not anxious. No depression. No suicidal thoughts. No homicidal thoughts. SKIN: No rash. No lesions. No wounds. ENDOCRINE: No unexplained weight loss. No weight gain. HEMATOLOGIC/LYMPHATIC: No anemia. No purpura. No petechiae. No prolonged or excessive bleeding. No palpable lymph nodes. PERSONAL/FAMILY/SOCIAL HISTORY: The patient is and current everyday smoker, only occasional alcohol use and no illicit drug use. MEDICATIONS: Prilosec 40mg Po daily Tramadol 50mg PO twice a day PRN Gabapentin 600mg PO three times a day Lipitor 10mg PO bedtime Melatin 3mg PO bedtime PRN Fioricet 1-2 each PO twice a day PRN Tramadol-Acetaminophen 37.5-325 PO Q 12 hours Lexapro 20mg PO bedtime Topamax 25mg PO twice a day ALLERGIES: No known allergies PHYSICAL EXAMINATION: GENERAL: The patient is alert, oriented to person and place. HEENT: Head normocephalic, atraumatic. Eyes: Extraocular muscles are intact. Pupils are equal, round and reactive to light and accommodation. Ears: No lesions. Nose appeared normal. Throat: No exudate or erythema. NECK: Supple. No JVD, no carotid bruit. No lymphadenopathy or thyromegaly. LUNGS: Diminished breath sounds. Clear to auscultation. Percussion note normal. Chest symmetrical. HEART: S1, S2, no S3. No murmurs. No cyanosis or clubbing. No ascites. Pulses: Dorsalis pedis and posterior tibial pulses +1 to +2 bilaterally. ABDOMEN: Soft. Nontender. Bowel sounds active. No CVA tenderness. No mass felt. EXTREMITIES: No edema. Full range of motion of all extremities, equal. NEUROLOGIC: No focal deficit. Cranial nerves II through XII are grossly intact. No headache, no double vision or headache. SKIN: Not dry. Intact. Turgor - normal. LYMPHATIC: No palpable lymph nodes/no lymphedema. MUSCULOSKELETAL: Normal joints with no swelling. Muscle tone is normal. Generalized weakness. LABS: CT of the head and neck negative along with negative urine drug screen. Sodium 141, potassium 4.2, BUN 14, creatinine 0.78, glucose 96, AST 19, ALT 17, Alkaline phosphatase 89, total protein 7.0, triglyceride 251, total cholesterol 278, LDL 173, HDL 55, TSH 1.5, Free T4 1, WBC 6.46, hgb 12.8, hct 38.1, plt count 227, urine is negative. ASSESSMENT: 1. Speech problems 2. Blurry vision 3. Generalized weakness 4. Dyslipidemia 5. History of migraine headaches 6. Disorientation 7. Heavy smoker 8. History of multiple tick bites PLAN: 1. Will admit as inpatient 2. She is scheduled for carotid scan 3. CT of the brain with contrast tomorrow morning 4. CBC and CMP daily 5. Labs have been drawn due to history of multiple tick bites; [place] spotted fever and Ehrlichia those are pending 6. Regular diet 7. IV fluids normal saline at 75cc an hour 8. Symptoms seemed to have improved while in the ER although she will still be admitted 9. Chest x-ray 10.Continue home medications 11.Will do Nicotine patch if necessary Will follow closely. TIME SPENT: More than 70 minutes. CARLEE
[2018-01-06] MEDS ORDERED: DECADRON 4 MG/ML SDV IM STA (14:31)
[2018-01-06] MEDS: TORADOL IVP STA ×2 (14:46→14:51)
[2018-01-06] MEDS ORDERED: TORADOL IM STA (14:52)
[2018-01-06 15:30] VITALS: BP 104/70; TEMP 98
--- NOTE | 2018-01-07 08:54 | DS ---
DATE OF SERVICE: 01/06/18 FINAL DIAGNOSIS: 1. Headache 2. Some neurological symptoms etiology unknown could be related to migraine nonspecific 3. History of migraine headaches 4. Fibromyalgia 5. Dyslipidemia 6. History of smoking. DISCHARGE INSTRUCTIONS: Discharge home. Continue the home medications. Come back to see me on Thursday Morning and not to return to work until Thursday. MEDICATIONS AT DISCHARGE: Prilosec 40mg PO daily Tramadol 50mg PO twice a day PRN Gabapentin 600mg PO three times a day Lipitor 10mg PO bedtime Melatin 3mg PO bedtime PRN Fioricet 1-2 each PO twice a day PRN Tramadol-Acetaminophen 37.5-325 PO Q 12 hours Lexapro 20mg PO bedtime NEW PRESCRIPTIONS: Prilosec 20mg PO QDAC Topamax 25mg PO twice a day DIET INSTRUCTIONS: Low Cholesterol ACTIVITY: As tolerated SMOKING: Counseling for smoking done DISEASE SPECIFIC EDUCATION: Appointment Followup Medication HOSPITAL COURSE: [facility] was hospitalized. She started having problem with numbness around her periorbital area going to the occipital area along with some difficulty in finding words with foggy mental status duration 10 to 15 minutes. The was seen and examined in the emergency room by ER attending. CT scan of the head done which was negative. Complete cardiac workup was negative. The patient had practically no neurological deficit. On physical exam pupils were equal and reactive to light normally. She is moving all her extremities. She was up and about and was oriented to time, place and person. Repeat CT scan with contrast was negative except for small vessel disease. Carotid scan showed 50% less both internal carotid arteries. Hemodynamically insignificant. Echo showed normal LV contractility with no valvular structure abnormalities. Telemetry did not reveal any arrhythmias. The patient's other problem is smoking which she has been trying to quit, counseling done. At the time of discharge the patient was up and about. She was in the past with some neurological problems related to migraine by Dr. Littlejohn. The appointment has already been made. CONDITION: Stable. TIME SPENT: More than 60 minutes. CARLEE
--- NOTE | 2018-01-07 09:02 | PN ---
DATE OF SERVICE: 01/06/18 SUBJECTIVE: [facility] was hospitalized. She started having problem with numbness around her periorbital area going to the occipital area along with some difficulty in finding words with foggy mental status duration 10 to 15 minutes. The was seen and examined in the emergency room by ER attending. CT scan of the head done which was negative. Complete cardiac workup was negative. The patient had practically no neurological deficit. Repeat CT scan with contrast was negative except for small vessel disease. Carotid scan showed 50% less both internal carotid arteries. Hemodynamically insignificant. Echo showed normal LV contractility with no valvular structure abnormalities. Telemetry did not reveal any arrhythmias. The patient's other problem is smoking which she has been trying to quit, counseling done. At the time of discharge the patient was up and about. She was in the past with some neurological problems related to migraine by Dr. Littlejohn. The appointment has already been made. REVIEW OF SYSTEMS: CONSTITUTIONAL: No night sweats. No fatigue, malaise, lethargy. No fever or chills. HEENT: Eyes: No visual changes. No eye pain. No eye discharge. ENT: No runny nose. No epistaxis. No sinus pain. No sore throat. No odynophagia. No congestion. RESPIRATORY: No cough, no congestion. No hemoptysis. No shortness of breath. CARDIOVASCULAR: No angina symptoms. No CHF symptoms. No atypical chest pain for CAD. No palpitations. No orthopnea. GASTROINTESTINAL: No abdominal pain. No nausea or vomiting. No diarrhea or constipation. No hematemesis. No hematochezia. GENITOURINARY: No urgency. No frequency. No dysuria. No hematuria. No obstructive symptoms. No discharge. No pain. No significant abnormal bleeding. MUSCULOSKELETAL: No musculoskeletal pain; no joint swelling. NEUROLOGICAL: No headache. No neck pain. No syncope. No seizures. No dizziness. PSYCHIATRIC: Not anxious. No depression. No suicidal thoughts. No homicidal thoughts. SKIN: No rash. No lesions. No wounds. ENDOCRINE: No unexplained weight loss. No weight gain. HEMATOLOGIC/LYMPHATIC: No anemia. No purpura. No petechiae. No prolonged or excessive bleeding. No palpable lymph nodes. PHYSICAL EXAMINATION: GENERAL: The patient is oriented to time, place and person. HEENT: Head normocephalic, atraumatic. Eyes: Extraocular muscles are intact. Pupils are equal, round and reactive to light and accommodation. Ears: No lesions. Nose appeared normal. Throat: No exudate or erythema. NECK: Supple. No JVD, no carotid bruit. No lymphadenopathy or thyromegaly. LUNGS: Clear to auscultation. Percussion note normal. Chest symmetrical. HEART: S1, S2, no S3. No murmurs. No cyanosis or clubbing. No ascites. Pulses: Dorsalis pedis and posterior tibial pulses +1 to +2 both sides. ABDOMEN: Soft. Nontender. Bowel sounds active. No CVA tenderness. No mass felt. EXTREMITIES: No edema. Full range of motion of all extremities, equal. NEUROLOGIC: No focal deficit. Cranial nerves II through XII are grossly intact. No headache, no double vision or headache. SKIN: Not dry. Intact. Turgor - normal. LYMPHATIC: No palpable lymph nodes/no lymphedema. MUSCULOSKELETAL: Normal joints with no swelling. Muscle tone is normal. ASSESSMENT: 1. Headache 2. Some neurologist symptoms etiology unknown could be related to migraine nonspecific 3. History of migraine headaches 4. Fibromyalgia 5. Dyslipidemia 6. History of smoking. PLAN: 1. Discharge home 2. Continue all home medications 3. Appointment scheduled with Dr. Littlejohn CONDITION: Stable TIME SPENT: More than 30 minutes. Plan and coordination of the patient's care discussed in the presence of nurse. CARLEE
--- NOTE | 2018-01-07 12:47 | ECHO2D ---
Date of Exam: 01/06/18 Ordering Physician: DR. ILIR HIRSCH Room #: 103 Reason for Echo: CONFUSION, POSSIBLE TIA, CHEST DISCOMFORT M-Mode Normal Adult Results LV Dimensions Normal Adult Results AoV Opening excursions >1.6 >1.6 LVEDD-base- 3.5-5.8 3.8 Ao root dimensions 2.0-3.7 3.5 LVESD-base- 3.1-4.6 L. Atrium dimensions 1.9-3.8 3.4 Post. Wall thickness 0.8-1.1 1.1 IV septum (thickness) 0.7-1.2 1.1 Post. Wall excursion 0.72-1.3 NORMAL Septal motion NORMAL Systolic motion R. Ventricular cavity 1.5-2.0 NORMAL LVEF 60% 63% Paradoxical septal wall motion NORMAL 2-D : 2-D M Mode Echocardiogram was performed using apical four chamber and left parasternal long and short axis views. Mitral, tricuspid and aortic valves appear to be normal. Contractility of the left ventricle seems to be normal, so is the cavity size. Left atrial cavity size and aortic root appear to be normal. There is no pericardial effusion. There is no thrombus noted in the left ventricular or left aortic cavity. No mitral valve prolapse noted. M-MODE: MV: NORMAL AV: NORMAL TV: NORMAL PV: CHAMBER SIZE: NORMAL WALL MOTION: NORMAL PERICARDIUM: NORMAL INTERPRETATION: 1. NORMAL 2 "D" "M" MODE ECHO MTDD
== END 2018-01-06 16:35 | disposition home or self-care (01) ==
LOC: ED 09:29 → INTOOBSV 13:08 → MEDSURG A 13:08
PROVIDERS: ADMIT Internal Medicine; ATTEND Internal Medicine
DX: R41.0 Disorientation, unspecified (principal); R42 Dizziness and giddiness; R53.1 Weakness; E78.5 Hyperlipidemia, unspecified; R47.9 Unspecified speech disturbances; H53.8 Other visual disturbances; Z72.0 Tobacco use; R51 Headache
CPT/HCPCS: 36415; 80053; 80061; 80306; 81001; 82962; 84439; 84443; 85025; 85651; 86617; 86757; 87798; 93005; 93010; 99284

== ENCOUNTER 2018-01-12 09:20 | Outpatient (CLI) | END 2018-01-12 09:21 | disposition home or self-care (01) | LOC: LAB 09:20 | PROVIDERS: ATTEND Internal Medicine | DX: R41.0 Disorientation, unspecified (principal); R42 Dizziness and giddiness; A77.0 Spotted fever due to Rickettsia rickettsii; T14.8XXA Other injury of unspecified body region, initial encounter; W57.XXXA Bitten or stung by nonvenomous insect and other nonvenomous arthropods, initial encounter | CPT/HCPCS: 36415; 80053; 85025; 86757 ==

== ENCOUNTER 2018-02-15 15:20 | Outpatient (CLI) | END 2018-02-15 15:21 | disposition home or self-care (01) | LOC: LAB 15:20 | PROVIDERS: ATTEND Internal Medicine | DX: T14.8XXA Other injury of unspecified body region, initial encounter (principal); W57.XXXA Bitten or stung by nonvenomous insect and other nonvenomous arthropods, initial encounter | CPT/HCPCS: 36415; 85025; 85651; 86617; 86757; 87798 ==